=== PATIENT | male | born 1960 | race Caucasian/White ===

== ENCOUNTER 2019-10-17 09:46 | Emergency (ER) | payer OTHER ==
[2019-10-17 10:06] VITALS: BP 172/93; PULSE 91
--- NOTE | 2019-10-17 10:22 | EDM.PDOC ---
<Victor Manuel Dowell - Last Filed: 10/17/19 10:17> ED HPI GENERAL MEDICAL PROBLEM - General Chief Complaint: Skin Complaint Stated Complaint: FACIAL SWELLING Time Seen by Provider: 10/17/19 09:55 Source of Information: Reports: Patient History Limitations: Reports: No Limitations - History of Present Illness INITIAL COMMENTS - FREE TEXT/NARRATIVE: 59 year old white male presents to the ED with complaints of skin infection to his left cheek. Pt states that he had a sore area to his left cheek that developed four days ago. He states that it felt like a hair on his face was sore. Denies erythema. He attempted to pluck the hair, but did not get anything out. He states that over the course of the last several days, his cheek has gotten more swollen and painful. Last night he tried to treat it with heat packs and used hydrogen peroxide to clean it. He said that he tried to pop it but nothing came out but a little bit of blood. Yesterday at work he developed fever and felt fatigued. Took two advil for the pain this morning which has not seemed to help much. He does report a history of staph infection in the past. Right Cheek Pain Score (Numeric/FACES): 10 - Related Data Allergies Allergy/AdvReac Type Severity Reaction Status Date / Time Penicillins Allergy Rash Verified 10/17/19 10:06 Home Meds: Home Meds Allopurinol [Zyloprim] 100 mg PO DAILY 09/12/14 [History] Colchicine [Colcrys] 0.6 mg PO DAILY 09/12/14 [History] Lisinopril [Zestril] 10 mg PO DAILY 10/22/16 [History] Past Medical History Cardiovascular History: Reports: Hypertension, Other (See Below) Other Cardiovascular History: borderline htn, no treatment Musculoskeletal History: Reports: Gout - Past Surgical History GI Surgical History: Reports: Hernia, Inguinal Social & Family History - Family History Family Medical History: Noncontributory - Tobacco Use Smoking Status *Q: Never Smoker - Caffeine Use Caffeine Use: Reports: Coffee ED ROS GENERAL - Review of Systems Review Of Systems: See Below Constitutional: Reports: Fever, Chills, Fatigue, Diaphoresis. Denies: Weakness HEENT: Reports: No Symptoms Respiratory: Reports: No Symptoms Cardiovascular: Reports: No Symptoms Endocrine: Reports: No Symptoms GI/Abdominal: Reports: No Symptoms : Reports: No Symptoms Musculoskeletal: Reports: No Symptoms Skin: Reports: Erythema (left cheek), Wound (left cheek) Neurological: Reports: No Symptoms Psychiatric: Reports: No Symptoms Hematologic/Lymphatic: Reports: No Symptoms Immunologic: Reports: No Symptoms ED EXAM, SKIN/RASH Exam: See Below Exam Limited By: No Limitations General Appearance: Alert, WD/WN, Mild Distress, Obese Ears: Normal External Exam, Hearing Grossly Normal Nose: Normal Inspection Throat/Mouth: Normal Inspection, Normal Lips, Normal Oropharynx, Normal Voice, No Airway Compromise Head: Atraumatic, Normocephalic Neck: Normal Inspection, Supple, Non-Tender Respiratory/Chest: No Respiratory Distress, Lungs Clear, Normal Breath Sounds, Chest Non-Tender Cardiovascular: Normal Peripheral Pulses, Regular Rate, Rhythm, No Murmur GI/Abdominal: Normal Bowel Sounds, Soft, Non-Tender (Male) Exam: Deferred Rectal (Males) Exam: Deferred Back Exam: Normal Inspection Extremities: Normal Inspection, Normal Range of Motion Neurological: Alert, Oriented, Normal Cognition, No Motor/Sensory Deficits Psychiatric: Normal Affect, Normal Mood Skin: Other (erythema and edema noted to left cheek, 3mm scabbed area noted at the central portion of redness and swelling, pt has redness and swelling extending externally down the left jaw) Location, Skin: Face Characteristics: Erythematous Associated features: Warmth, Tenderness, Swelling, Inflammation Lymphatic: Other (left tonsillar lymphadenopathy) Course - Vital Signs Last Recorded V/S: Last Vital Signs Temp 98.2 F 10/17/19 10:03 Pulse 91 10/17/19 10:03 Resp 16 10/17/19 10:03 BP 172/93 H 10/17/19 10:03 Pulse Ox 97 10/17/19 10:03 - Orders/Labs/Meds Meds: Medications Discontinued Medications Generic Name Dose Route Start Last Admin Trade Name Freq PRN Reason Stop Dose Admin Doxycycline Hyclate 200 mg 10/17/19 10:36 10/17/19 11:21 Vibramycin PO 10/17/19 10:37 200 mg ONETIME ONE Administration Lidocaine HCl 10 ml 10/17/19 11:50 10/17/19 12:08 Xylocaine 1% INJECT 10/17/19 11:51 10 ml ONETIME ONE Administration Trimethoprim/Sulfamethoxazole 1 tab 10/17/19 12:08 10/17/19 12:28 Septra Ds PO 10/17/19 12:09 1 tab ONETIME ONE Administration Departure - Departure Disposition: Home, Self-Care 01 Clinical Impression: Abscess Cellulitis Qualifiers: Site of cellulitis: unspecified site Qualified Code(s): L03.90 - Cellulitis, unspecified - Discharge Information Instructions: Cellulitis, Adult, [id number] Referrals: Chasidy Dawson MD [Primary Care Provider] - Forms: ED Department Discharge Additional Instructions: Doxycycline 200 mg twice daily for 10 days, Bactrim twice daily for 1 week or until gone, warm compresses as discussed every 2-3 hours while awake for the next several days or until infection resolving, follow-up clinic if not much better by Wednesday, return to ED as needed if symptoms worsening in any way. <Wan Solorzano - Last Filed: 10/17/19 15:03> Course - Re-Assessments/Exams Free Text/Narrative Re-Assessment/Exam: 10/17/19 15:00 Initial hx and exam was done by Victor Manuel Contreras, [employer]. I agree with her hx and exam as documented. I have also interviewed and examined patient. I did attempt I and D of probable early abcess L face. This was anesthetized with 1 % lidocaine after cleansing with chlorhexadene. Incised with #11 blade. Very small amount of bloody drainage only. Started on doxycycline 200 bid for 10 days and Bactrim DS bid for 7 days. Discharge instr. as documented. Departure - Departure Time of Disposition: 12:10 Condition: Fair
[2019-10-17] MEDS ORDERED: Doxycycline 100 MG Cap PO ONE (10:36)
[2019-10-17] MEDS ORDERED: Lidocaine 1% 10 ML MDV INJECT ONE (11:50)
[2019-10-17] MEDS ORDERED: Sulfamethoxazole/Trimethoprim 800-160 MG Tab PO ONE (12:08)
== END 2019-10-17 12:29 | disposition home or self-care (01) ==
LOC: JD.ED 09:46
DX: L02.01 Cutaneous abscess of face (principal); L03.211 Cellulitis of face; I10 Essential (primary) hypertension; Z88.0 Allergy status to penicillin; Z79.899 Other long term (current) drug therapy
CPT/HCPCS: 10060; 99283; A9270; J2001

== ENCOUNTER 2020-10-16 13:50 | Inpatient (IN) | payer OTHER ==
[2020-10-16] MEDS ORDERED: Metoclopramide 10 MG/2 ML SDV IVPUSH ONE (13:58)
[2020-10-16] MEDS ORDERED: HYDROmorphone 1 MG/ML Syringe IVPUSH ONE ×2 (13:58→18:47)
[2020-10-16] MEDS ORDERED: Sodium Chloride 0.9% 1,000 ML IV SCH (14:00)
--- NOTE | 2020-10-16 14:17 | EDM.PDOC ---
ED HPI GENERAL MEDICAL PROBLEM - General Chief Complaint: Trauma Stated Complaint: [facility] Time Seen by Provider: 10/16/20 13:57 Source of Information: Reports: Patient History Limitations: Reports: No Limitations - History of Present Illness INITIAL COMMENTS - FREE TEXT/NARRATIVE: 60-year-old male reports he was tearing down a paint mcdonald and was proximately 12 feet off the ground when he fell off the roof landing hard on both of his feet. Patient appreciated pain in both calcanei and upon trying to stand up after the fall he had a syncopal event where he passed out and struck his forehead on a concrete wall. He possibly lost consciousness for a short period of time. Coworkers found him and called the paramedics. Paramedics identified alert oriented the patient refused a c-collar. He denies any cervical neck pain or head pain. Denies any back pain either. Pain is in both feet particular the calcanei and in the left knee in the distribution of the proximal tibia. He denies any rib pain or trouble breathing. No abdominal pain no pelvic pain Onset: Today, Sudden Onset Date: 10/16/20 Onset Time: 13:20 Duration: Minutes: Location: Reports: Lower Extremity, Left (Knee and foot particular calcaneus), Lower Extremity, Right (Foot) Quality: Reports: Ache, Throbbing Severity: Moderate Improves with: Reports: None (10) Worsens with: Reports: Movement Context: Reports: Trauma (All approximately 12 feet from a building landing feet first). Denies: Activity, Exercise, Lifting, Sick Contact Associated Symptoms: Reports: Nausea/Vomiting (Nausea without vomiting) Treatments DISTRIBUTION ASSOCIATE: Reports: Other (see below) (None.) Generalized Pain Score (Numeric/FACES): 5 - Related Data Allergies Allergy/AdvReac Type Severity Reaction Status Date / Time Penicillins Allergy Rash Verified 10/16/20 14:04 Home Meds: Home Meds allopurinoL [Zyloprim] 100 mg PO DAILY 09/12/14 [History] lisinopriL [Zestril] 10 mg PO DAILY 10/22/16 [History] Omeprazole 20 mg PO DAILY 10/16/20 [History] Past Medical History Cardiovascular History: Reports: Hypertension, Other (See Below) Other Cardiovascular History: borderline htn, no treatment Musculoskeletal History: Reports: Gout Endocrine/Metabolic History: Reports: Obesity/BMI 30+ - Past Surgical History GI Surgical History: Reports: Hernia, Inguinal Social & Family History - Family History Family Medical History: No Pertinent Family History - Caffeine Use Caffeine Use: Reports: Coffee - Living Situation & Occupation Living situation: Reports: Single Occupation: Employed Review of Systems - Review of Systems Review Of Systems: See Below Constitutional: Denies: Chills, Diaphoresis, Fever, Weakness Eyes: Reports: No Symptoms Ears: Reports: No Symptoms Nose: Reports: No Symptoms Mouth/Throat: Reports: No Symptoms Respiratory: Reports: Shortness of Breath. Denies: Wheezing, Pleuritic Chest Pain, Cough, Sputum, Hemoptysis, Other Cardiovascular: Reports: Other (history of hypertension.) GI/Abdominal: Reports: No Symptoms Genitourinary: Reports: Other ( nocturia x2 ) Musculoskeletal: Reports: Neck Pain, Back Pain (Occasional neck pain occasional low back pain) Skin: Reports: No Symptoms Neurological: Reports: No Symptoms Psychiatric: Reports: No Symptoms ED EXAM, GENERAL - Physical Exam Exam: See Below Exam Limited By: Uncooperative General Appearance: Alert, WD/WN, Mild Distress, Other (She has multiple abrasions and superficial lacerations across his forehead and right temporal scalp. Apparently this is where he stood up after hitting the ground and had a syncopal event striking a concrete wall with his forehead. He reports his tetanus toxoid is up-to-date) Eye Exam: Bilateral Eye: Normal Inspection, PERRL Ears: Normal TMs Nose: Normal Inspection Throat/Mouth: Normal Inspection, Normal Lips, Normal Teeth, Normal Oropharynx, Other Head: Facial Swelling (Multiple superficial lacerations and abrasions to the right temporal scalp right forehead and left forehead above his left eye. None of these wounds will require surgical repair), Facial Tenderness. No: Sinus Tenderness Neck: Normal Inspection, Supple, Non-Tender, Full Range of Motion, Other (I had with no c-collar on as he refused placement. He has full unlimited movement of his cervical spine.). No: Lymphadenopathy (L), Lymphadenopathy (R) Respiratory/Chest: Lungs Clear, Normal Breath Sounds, No Accessory Muscle Use, Respiratory Distress (Mild tachypnea at rest with sats of 98%) Cardiovascular: Normal Peripheral Pulses, Regular Rate, Rhythm, No Edema, No Gallop, No Murmur, No Rub Peripheral Pulses: 2+: Posterior Tibial (L), Posterior Tibial (R), Dorsalis Pedis (L), Dorsalis Pedis (R), 3+: Carotid (L), Carotid (R) GI/Abdominal: Normal Bowel Sounds, Soft, Non-Tender, No Organomegaly, No Mass, Other ED TRAUMA PROCEDURES - Splinting Left Lower Extremity Splint Site: Posterior slab splint below knee left side Pre-Procedure NV Status: Normal Post-Procedure NV Status: Normal Splint Material: Fiberglass Splint Design: Posterior Applied & Form Fitted By: Provider Provider Post-Splint Application NV Check: NV Status Normal Complications: No Right Lower Extremity Pre-Procedure NV Status: Normal (Below-knee Ortho-Glass posterior slab splint due to fractured calcaneus with bulky dressings) Post-Procedure NV Status: Normal Splint Material: Fiberglass Splint Design: Posterior Applied & Form Fitted By: Provider Provider Post-Splint Application NV Check: NV Status Normal (Steer slab) Complications: No #1 Interpretation EKG Date: 10/16/20 Time: 14:15 Rhythm: NSR Rate (Beats/Min): 90 [place]: Normal P-Wave: Enlarged (Consider left atrial hypertrophy) QRS: Other (Initial poor R wave progression) ST-T: Other (T wave inversion aVL nonspecific finding diffuse early repolarization pattern in precordial leads) QT: Normal EKG Interpretation Comments: Borderline ECG Course - Vital Signs Last Recorded V/S: Last Vital Signs Temp 36.7 C 10/16/20 17:53 Pulse 100 10/16/20 17:53 Resp 16 10/16/20 14:01 BP 136/74 10/16/20 17:53 Pulse Ox 100 10/16/20 17:53 - Orders/Labs/Meds Orders: Active Orders 24 hr Category Date Time Status Admission Status [Patient Status] [ADT] Routine ADT 10/16/20 19:27 Ordered EKG Documentation Completion [RC] STAT Care 10/16/20 14:02 Active Sodium Chloride 0.9% [Normal Saline] 1,000 ml Med 10/16/20 14:00 Active IV ASDIRECTED Durable Medical Equipment for Discharge [DME for Oth 10/16/20 18:47 Ordered Discharge] [COMM] Stat Medication Orders Sodium Chloride (Normal Saline) 1,000 mls @ 250 mls/hr IV ASDIRECTED EDUARDO Last Admin: 10/16/20 14:11 Dose: 250 mls/hr Documented by: ANJANA Labs: Laboratory Tests 10/16/20 10/16/20 10/16/20 Range/Units 14:00 14:00 14:00 WBC 10.75 H (4.23-9.07) K/mm3 RBC 4.91 (4.63-6.08) M/mm3 Hgb 15.3 (13.7-17.5) gm/dl Hct 44.5 (40.1-51.0) % MCV 90.6 (79.0-92.2) fl MCH 31.2 (25.7-32.2) pg MCHC 34.4 (32.2-35.5) g/dl RDW Std Deviation 48.3 H (35.1-43.9) fL Plt Count 150 L (163-337) K/mm3 MPV 12.6 H (9.4-12.3) fl Neut % (Auto) 55.2 (34.0-67.9) % Lymph % (Auto) 31.1 (21.8-53.1) % [place] % (Auto) 12.3 H (5.3-12.2) % Eos % (Auto) 1.1 (0.8-7.0) Baso % (Auto) 0.3 (0.1-1.2) % Neut # (Auto) 5.94 H (1.78-5.38) K/mm3 Lymph # (Auto) 3.34 (1.32-3.57) K/mm3 [place] # (Auto) 1.32 H (0.30-0.82) K/mm3 Eos # (Auto) 0.12 (0.04-0.54) K/mm3 Baso # (Auto) 0.03 (0.01-0.08) K/mm3 PT 10.6 (9.7-12.0) SECONDS INR 0.99 APTT 21.7 (21.7-31.4) SECONDS Sodium 139 (136-145) mEq/L Potassium 4.5 (3.5-5.1) mEq/L Chloride 104 (98-107) mEq/L Carbon Dioxide 24 (21-32) mEq/L Anion Gap 15.5 H (5-15) BUN 17 (7-18) mg/dL Creatinine 1.6 H (0.7-1.3) mg/dL Est Cr Clr Drug Dosing 45.90 mL/min Estimated GFR (MDRD) 44 (>60) mL/min BUN/Creatinine Ratio 10.6 L (14-18) Glucose 144 H (74-106) mg/dL Calcium 9.8 (8.5-10.1) mg/dL Magnesium 2.0 (1.8-2.4) mg/dl Total Bilirubin 0.5 (0.2-1.0) mg/dL AST 67 H (15-37) U/L ALT 115 H (16-63) U/L Alkaline Phosphatase 89 (46-116) U/L Creatine Kinase 208 (39-308) U/L C-Reactive Protein 1.1 H* (<1.0) mg/dL NT-Pro-B Natriuret Pep (0-125) pg/mL Total Protein 7.2 (6.4-8.2) g/dl Albumin 3.8 (3.4-5.0) g/dl Globulin 3.4 gm/dL Albumin/Globulin Ratio 1.1 (1-2) Urine Color (Yellow) Urine Appearance (Clear) Urine pH (5.0-8.0) Ur Specific Mcintosh (1.005-1.030) Urine Protein (Negative) Urine Glucose (UA) (Negative) Urine Ketones (Negative) Urine Occult Blood (Negative) Urine Nitrite (Negative) Urine Bilirubin (Negative) Urine Urobilinogen (0.2-1.0) Ur Leukocyte Esterase (Negative) Urine RBC (0-5) /hpf Urine WBC (0-5) /hpf Ur Squamous Epith Cells (0-5) /hpf Urine Bacteria (FEW) /hpf Urine Mucus (FEW) /hpf Ethyl Alcohol 0.00 (0.00) gm% SARS-CoV-2 RNA ([place]) (NEGATIVE) 10/16/20 10/16/20 10/16/20 Range/Units 14:00 15:56 16:55 WBC (4.23-9.07) K/mm3 RBC (4.63-6.08) M/mm3 Hgb (13.7-17.5) gm/dl Hct (40.1-51.0) % MCV (79.0-92.2) fl MCH (25.7-32.2) pg MCHC (32.2-35.5) g/dl RDW Std Deviation (35.1-43.9) fL Plt Count (163-337) K/mm3 MPV (9.4-12.3) fl Neut % (Auto) (34.0-67.9) % Lymph % (Auto) (21.8-53.1) % [place] % (Auto) (5.3-12.2) % Eos % (Auto) (0.8-7.0) Baso % (Auto) (0.1-1.2) % Neut # (Auto) (1.78-5.38) K/mm3 Lymph # (Auto) (1.32-3.57) K/mm3 [place] # (Auto) (0.30-0.82) K/mm3 Eos # (Auto) (0.04-0.54) K/mm3 Baso # (Auto) (0.01-0.08) K/mm3 PT (9.7-12.0) SECONDS INR APTT (21.7-31.4) SECONDS Sodium (136-145) mEq/L Potassium (3.5-5.1) mEq/L Chloride (98-107) mEq/L Carbon Dioxide (21-32) mEq/L Anion Gap (5-15) BUN (7-18) mg/dL Creatinine (0.7-1.3) mg/dL Est Cr Clr Drug Dosing mL/min Estimated GFR (MDRD) (>60) mL/min BUN/Creatinine Ratio (14-18) Glucose (74-106) mg/dL Calcium (8.5-10.1) mg/dL Magnesium (1.8-2.4) mg/dl Total Bilirubin (0.2-1.0) mg/dL AST (15-37) U/L ALT (16-63) U/L Alkaline Phosphatase (46-116) U/L Creatine Kinase (39-308) U/L C-Reactive Protein (<1.0) mg/dL NT-Pro-B Natriuret Pep 15 (0-125) pg/mL Total Protein (6.4-8.2) g/dl Albumin (3.4-5.0) g/dl Globulin gm/dL Albumin/Globulin Ratio (1-2) Urine Color Yellow (Yellow) Urine Appearance Clear (Clear) Urine pH 6.0 (5.0-8.0) Ur Specific Mcintosh > or = 1.030 (1.005-1.030) Urine Protein Negative (Negative) Urine Glucose (UA) Negative (Negative) Urine Ketones Negative (Negative) Urine Occult Blood Negative (Negative) Urine Nitrite Negative (Negative) Urine Bilirubin Negative (Negative) Urine Urobilinogen 0.2 (0.2-1.0) Ur Leukocyte Esterase Negative (Negative) Urine RBC 0-5 (0-5) /hpf Urine WBC 0-5 (0-5) /hpf Ur Squamous Epith Cells 5-10 H (0-5) /hpf Urine Bacteria Few (FEW) /hpf Urine Mucus Few (FEW) /hpf Ethyl Alcohol (0.00) gm% SARS-CoV-2 RNA ([place]) Negative (NEGATIVE) Meds: Medications Generic Name Dose Route Start Last Admin Trade Name Freq PRN Reason Stop Dose Admin Sodium Chloride 1,000 mls @ 250 mls/hr 10/16/20 14:00 10/16/20 14:11 Normal Saline IV 250 mls/hr ASDIRECTED EDUARDO Administration Discontinued Medications Generic Name Dose Route Start Last Admin Trade Name Freq PRN Reason Stop Dose Admin Hydromorphone HCl 1 mg 10/16/20 13:58 10/16/20 14:12 Dilaudid IVPUSH 10/16/20 13:59 1 mg ONETIME ONE Administration Hydromorphone HCl 1 mg 10/16/20 18:47 10/16/20 18:52 Dilaudid IVPUSH 10/16/20 18:48 1 mg ONETIME ONE Administration Metoclopramide HCl 10 mg 10/16/20 13:58 10/16/20 14:05 Reglan IVPUSH 10/16/20 13:59 10 mg ONETIME ONE Administration - Radiology Interpretation Free Text/Narrative:: 60-year-old male presents to the ED for evaluation of injury sustained from a fall. He was tearing down a paint mcdonald and was approximately 12 feet off of the ground when he slipped and landed hard on the concrete surface on both of his feet. He had immediate and severe pain particularly in his right calcaneus or heel area when he attempted to stand up he experienced a syncopal event and fell backwards striking his forehead on a concrete wall. It is suspected that he may have lost consciousness for 20 seconds or so. However he was alert and oriented once he came to. Paramedics were called and they attended him on scene and brought him to the hospital. Patient reports that [facility]. He denies headache. He has abrasions contusions to his right temporal and right forehead as well as a superficial laceration above his left eyebrow from hitting the concrete wall. Other injuries appear to be to the mid left upper arm in the biceps distribution appears to have strained this area the biceps tendon appears to be intact but tender particularly at its insertion on the ulna. There is pain with pronation supination of the left elbow. Lower extremities show obvious deformity and severe pain in his left knee with a traumatic effusion developing. He has swelling lateral aspect of the right ankle and foot and pain on squeeze test of the left calcaneus and foot as well. Plan. Patient will require CT head . His neck is cleared clinically as he has full range of motion and no pain. He will have CTs of his thoracic and lumbar spine due to the nature of his injury. There is no evidence of any chest wall or abdominal injuries. He will have plain films done of his left tib-fib left foot right foot as he has suspect bilateral calcaneal fractures and likely a tibial plateau fracture of his left knee. - Re-Assessments/Exams Free Text/Narrative Re-Assessment/Exam: 10/16/20 16:25 CT scan of the left knee reveals a lateral wedge fracture of the lateral tibial plateau with depression of the weightbearing portion approximately 3 mm. Associated split fractures are present. Findings are consistent with a Schatzker 2 fracture. Large associated joint effusion. Small fracture of the proximal fibula is also present. There is a fracture of the anterior tibial spine. Cruciate ligaments are not well seen on this exam. Follow-up MRI would be of benefit as clinically warranted. CT of the left foot reveals an avulsion type fracture along the medial aspect of the calcaneus. Degenerative changes of the foot in the midfoot appreciated. There is no evidence of joint malalignment or dislocation associated overlying soft tissue swelling is present. CT of the right foot reveals an intra-articular comminuted fracture of the calcaneus. Calcaneal spurs are present there is no evidence of joint malalignment or dislocation fracture line extends to the subtalar joint. Moderate associated overlying soft tissue swelling. 10/16/20 17:19 Urinalysis shows 5-10 squamous epithelial cells but no red blood cells to suggest potential kidney injury. Blood alcohol was 0.00. COVID-19 screen is negative. I have spoken with Dr. Palencia trauma surgeon and he will admit the patient to the hospital for pain management until suitable placement can be arranged. I had [facility] with [facility] [place] and he felt at this time that the calcaneal fractures would be a good week or more before they required surgery as they swell so much. He also indicated that the left tibial plateau fracture could be fixed sometime in the next [address] Ibanez manager of internal did speak with Dr. Salomon who did phone me here in the ED and indicated he would see the patient when he returns either Wednesday or Wednesday this weekend. Otherwise the patient will be seen in the clinic although would be easier to be seen in the hospital as he cannot be weightbearing for about 8 weeks on either extremity until they are satisfactorily healed. 10/16/20 18:43 and had posterior Ortho-Glass-- 5 inch splints placed on both lower extremities to protect the calcanei from further injury. Large bulky dressings applied to both feet. We did not have an appropriate knee splint that could be dialed or locked. [employer] indicated that due to his insurance through the [place] [facility] he would have to pay $700 upfront for the splint. We therefore utilize what we had in the closet which is a very poor knee splint placed with a Velcro. Patient is to be nonweightbearing anyway. Will be admitted to the hospital per trauma surgeon as he is unable to weight-bear on either lower extremity and is going to need help with all activities of daily living. It is estimated that he will not be able to weight-bear in either extremity for 8 weeks. He will require a PT and Occupational Therapy consultation and social work to get involved as he may not be able to return to his home to receive the care he needs. Departure - Departure Time of Disposition: 19:23 Disposition: Admitted As Inpatient 66 Condition: Fair Clinical Impression: Injury resulting from fall from height Tibial plateau fracture, left Qualifiers: Encounter type: initial encounter Fracture type: closed Qualified Code(s): S82.142A - Displaced bicondylar fracture of left tibia, initial encounter for closed fracture Left calcaneal fracture Qualifiers: Encounter type: initial encounter Calcaneus location: body Fracture type: closed Fracture alignment: nondisplaced Qualified Code(s): S92.015A - Nondisplaced fracture of body of left calcaneus, initial encounter for closed fracture Fracture of right calcaneus Qualifiers: Encounter type: initial encounter Calcaneus location: body Fracture type: closed Abrasion of forehead Qualifiers: Encounter type: initial encounter Qualified Code(s): S00.81XA - Abrasion of other part of head, initial encounter - Discharge Information *PRESCRIPTION DRUG MONITORING PROGRAM REVIEWED*: Not Applicable *COPY OF PRESCRIPTION DRUG MONITORING REPORT IN PATIENT MIKHAIL: Not Applicable Referrals: PCP,None [Ordering Only Provider] - Forms: ED Department Discharge Sepsis Event Note (ED) - Evaluation Sepsis Screening Result: No Definite Risk - Focused Exam Vital Signs: Vital Signs Temp Pulse Resp BP BP Pulse Ox 10/16/20 17:53 36.7 C 100 136/74 100 10/16/20 14:01 36.1 C 89 16 139/61 100 10/16/20 13:57 36.1 C 92 21 H 141/97 H 98 - My Orders Last 24 Hours: My Active Orders 10/16/20 14:00 Sodium Chloride 0.9% [Normal Saline] 1,000 ml IV ASDIRECTED 10/16/20 14:02 EKG Documentation Completion [RC] STAT 10/16/20 18:47 Durable Medical Equipment for Discharge [DME for Discharge] [COMM] Stat 10/16/20 19:27 Admission Status [Patient Status] [ADT] Routine - Assessment/Plan Last 24 Hours: My Active Orders 10/16/20 14:00 Sodium Chloride 0.9% [Normal Saline] 1,000 ml IV ASDIRECTED 10/16/20 14:02 EKG Documentation Completion [RC] STAT 10/16/20 18:47 Durable Medical Equipment for Discharge [DME for Discharge] [COMM] Stat 10/16/20 19:27 Admission Status [Patient Status] [ADT] Routine
--- NOTE | 2020-10-16 14:52 | CT ---
PROCEDURE INFORMATION: Exam: CT Lumbar Spine Without Contrast Exam date and time: 10/16/2020 2:21 PM Age: 60 years old Clinical indication: Injury or trauma; Patient HX: Fall 12 ft off of roof back pain; Additional info: Previous report in images sent today TECHNIQUE: Imaging protocol: Computed tomography images of the lumbar spine without contrast. Radiation optimization: All CT scans at this facility use at least one of these dose optimization techniques: automated exposure control; mA and/or kV adjustment per patient size (includes targeted exams where dose is matched to clinical indication); or iterative reconstruction. COMPARISON: No relevant prior studies available. FINDINGS: Vertebrae: The facet joints demonstrate mild degenerative hypertrophy and sclerosis. There is no evidence of acute fracture. Discs/Spinal canal/Neural foramina: The lumbar spine demonstrates mild degenerative changes at multiple levels. Kidneys and ureters: Nonobstructing renal calcifications present bilaterally. Vasculature: The vasculature demonstrates diffuse mild atherosclerotic calcification. Soft tissues: Unremarkable. IMPRESSION: 1. The lumbar spine demonstrates mild degenerative changes at multiple levels. 2. No evidence of acute fracture. Thank you for allowing us to participate in the care of your patient. Dictated and Authenticated by: Joe Sena DO 10/16/2020 3:50 PM Central Time ([place] & [place]) [facility]
--- NOTE | 2020-10-16 14:57 | CT ---
PROCEDURE INFORMATION: Exam: CT Head Without Contrast Exam date and time: 10/16/2020 2:21 PM Age: 60 years old Clinical indication: Injury or trauma; Patient HX: Fall from 12 foot roof abrasions to forehead fainted TECHNIQUE: Imaging protocol: Computed tomography of the head without contrast. Radiation optimization: All CT scans at this facility use at least one of these dose optimization techniques: automated exposure control; mA and/or kV adjustment per patient size (includes targeted exams where dose is matched to clinical indication); or iterative reconstruction. COMPARISON: No relevant prior studies available. FINDINGS: Brain: No intra-axial or extra-axial mass hemorrhage. No midline shift. Normal CSF spaces in graywhite differentiation. Cerebral ventricles: No ventriculomegaly. Bones/joints: No fracture identified. Paranasal sinuses: Paranasal sinuses appear normal. Mastoid air cells: Visualized mastoid air cells are well aerated. Soft tissues: Mild soft tissue swelling and linear hyperdensities in the subcutaneous tissues of right supraorbital region likely focal skin lacerations IMPRESSION: 1. Probable focal right forehead it in skin lacerations. CT of the head is otherwise normal. Thank you for allowing us to participate in the care of your patient. Dictated and Authenticated by: Amanda Monique MD 10/16/2020 3:48 PM Central Time ([place] & [place]) [facility]
--- NOTE | 2020-10-16 14:58 | CT ---
PROCEDURE INFORMATION: Exam: CT Thoracic Spine Without Contrast Exam date and time: 10/16/2020 2:21 PM Age: 60 years old Clinical indication: Injury or trauma; Patient HX: Fall 12 ft off of roof back pain; Additional info: Previous report in images sent today TECHNIQUE: Imaging protocol: Computed tomography images of the thoracic spine without contrast. Radiation optimization: All CT scans at this facility use at least one of these dose optimization techniques: automated exposure control; mA and/or kV adjustment per patient size (includes targeted exams where dose is matched to clinical indication); or iterative reconstruction. COMPARISON: CT Thoracic Spine wo Cont 10/22/2016 6:43 PM FINDINGS: Vertebrae: The facet joints demonstrate mild degenerative hypertrophy and sclerosis. There is no evidence of acute fracture. Discs/Spinal canal/Neural foramina: The thoracic spine demonstrates mild degenerative changes at multiple levels. Soft tissues: Unremarkable. IMPRESSION: 1. The thoracic spine demonstrates mild degenerative changes at multiple levels. 2. No evidence of acute fracture. Thank you for allowing us to participate in the care of your patient. Dictated and Authenticated by: Joe Sena DO 10/16/2020 3:49 PM Central Time ([place] & [place]) [facility]
--- NOTE | 2020-10-16 15:33 | CR ---
PROCEDURE INFORMATION: Exam: XR Pelvis Exam date and time: 10/16/2020 2:33 PM Age: 60 years old Clinical indication: Injury or trauma; Fall; Crushing; Bilateral; Pelvic region; Other: Lower extremities; Injury details: Fell from height of 12 feet onto feet TECHNIQUE: Imaging protocol: XR pelvis. Views: 1 or 2 view. COMPARISON: No relevant prior studies available. FINDINGS: Bones/joints: There is no evidence of acute fracture. There is no evidence of joint malalignment or dislocation. Soft tissues: There are no soft tissue masses or fluid collections. IMPRESSION: 1. No evidence of acute fracture. 2. No evidence of acute dislocation. Thank you for allowing us to participate in the care of your patient. Dictated and Authenticated by: Joe Sena DO 10/16/2020 4:13 PM Central Time ([place] & [place]) [facility]
--- NOTE | 2020-10-16 15:34 | CR ---
PROCEDURE INFORMATION: Exam: XR Left Tibia and Fibula Exam date and time: 10/16/2020 2:35 PM Age: 60 years old Clinical indication: Pain; Knee; Left; Additional info: Fell from 12 feet onto both feet; Concern for tibial plateau fracture TECHNIQUE: Imaging protocol: XR Left tibia and fibula. Views: 2 views. COMPARISON: MR Knee wo Cont Lt 12/31/2014 1:58 PM FINDINGS: Bones/joints: Slightly depressed fracture of the lateral tibial plateau extending inferiorly. Joint effusion is noted. There is no evidence of joint malalignment or dislocation. Soft tissues: Soft tissue swelling is present. IMPRESSION: 1. Slightly depressed fracture of the lateral tibial plateau extending inferiorly. 2. Soft tissue swelling is present. 3. Joint effusion is noted. 4. No evidence of acute dislocation. Thank you for allowing us to participate in the care of your patient. Dictated and Authenticated by: Joe Sena DO 10/16/2020 4:24 PM Central Time ([place] & [place]) BRET
--- NOTE | 2020-10-16 15:35 | CR ---
PROCEDURE INFORMATION: Exam: XR Chest, 1 View Exam date and time: 10/16/2020 2:38 PM Age: 60 years old Clinical indication: Injury or trauma; Fall; Blunt trauma (contusions or hematomas); Additional info: Fell from 12 feet onto both feet TECHNIQUE: Imaging protocol: XR of the chest Views: 1 view. COMPARISON: CT Chest w Cont 10/22/2016 6:43 PM FINDINGS: Lungs: Unremarkable. No consolidation. Pleural space: Unremarkable. No pleural effusion. No pneumothorax. Heart/Mediastinum: Unremarkable. No cardiomegaly. Bones/joints: Unremarkable. IMPRESSION: No acute findings. Thank you for allowing us to participate in the care of your patient. Dictated and Authenticated by: Joe Sena DO 10/16/2020 4:20 PM Central Time ([place]) BRET
--- NOTE | 2020-10-16 15:36 | CR ---
PROCEDURE INFORMATION: Exam: XR Right Foot Complete Exam date and time: 10/16/2020 2:38 PM Age: 60 years old Clinical indication: Injury or trauma; Fall; Fracture, traumatic; Closed fracture; Calcaneus; Right; Injury details: Fell from height of 12 feet onto feet TECHNIQUE: Imaging protocol: XR Right foot. Views: 3 or more views. COMPARISON: No relevant prior studies available. FINDINGS: Bones/joints: Comminuted fracture of the calcaneus is present. Calcaneal spurs are present. Degenerative changes of the foot. Soft tissues: Soft tissue swelling is present. IMPRESSION: 1. Comminuted fracture of the calcaneus is present. 2. Soft tissue swelling is present. 3. Calcaneal spurs are present. Thank you for allowing us to participate in the care of your patient. Dictated and Authenticated by: Joe Sena DO 10/16/2020 4:22 PM Central Time ([place]) BRET
--- NOTE | 2020-10-16 15:37 | CR ---
PROCEDURE INFORMATION: Exam: XR Left Foot Complete Exam date and time: 10/16/2020 2:38 PM Age: 60 years old Clinical indication: Injury or trauma; Fall; Fracture, traumatic; Closed fracture; Foot; Left; Additional info: Fell from 12 feet onto both feet TECHNIQUE: Imaging protocol: XR Left foot. Views: 3 or more views. COMPARISON: No relevant prior studies available. FINDINGS: Bones/joints: Calcaneal spurs are present. Degenerative changes of the foot. There is no evidence of acute fracture. There is no evidence of joint malalignment or dislocation. Soft tissues: Normal. IMPRESSION: 1. Calcaneal spurs are present. 2. Degenerative changes of the foot. 3. No evidence of acute fracture. 4. No evidence of acute dislocation. Thank you for allowing us to participate in the care of your patient. Dictated and Authenticated by: Joe Sena DO 10/16/2020 4:22 PM Central Time ([place]) MTDRoe
--- NOTE | 2020-10-16 16:10 | CT ---
PROCEDURE INFORMATION: Exam: CT Right Lower Extremity Without Contrast, Foot Exam date and time: 10/16/2020 3:25 PM Age: 60 years old Clinical indication: Injury or trauma; Fall; Blunt trauma; Heel; Bilateral; Additional info: Fell from 12 feet onto both feet; Concern for tibial plateau fracture TECHNIQUE: Imaging protocol: CT of the Right lower extremity without contrast was performed. Exam focused on the foot. Radiation optimization: All CT scans at this facility use at least one of these dose optimization techniques: automated exposure control; mA and/or kV adjustment per patient size (includes targeted exams where dose is matched to clinical indication); or iterative reconstruction. COMPARISON: CR Foot Comp Min 3V Rt 10/16/2020 2:38 PM FINDINGS: Bones/joints: Intra-articular comminuted fracture of the calcaneus present. Calcaneal spurs are present. There is no evidence of joint malalignment or dislocation. Fracture line extends to the subtalar joint. Soft tissues: Moderate overlying soft tissue swelling. IMPRESSION: 1. Intra-articular comminuted fracture of the calcaneus present. 2. Moderate overlying soft tissue swelling. 3. Calcaneal spurs are present. 4. No evidence of acute dislocation. 5. Fracture line extends to the subtalar joint. Thank you for allowing us to participate in the care of your patient. Dictated and Authenticated by: Joe Sena DO 10/16/2020 5:08 PM Central Time ([place]) BRET
--- NOTE | 2020-10-16 16:22 | CT ---
PROCEDURE INFORMATION: Exam: CT Left Lower Extremity Without Contrast, Knee Exam date and time: 10/16/2020 3:25 PM Age: 60 years old Clinical indication: Injury or trauma; Fall; Crushing; Patella or knee; Left; Additional info: Fell from 12 feet onto both feet; Concern for tibial plateau fracture TECHNIQUE: Imaging protocol: CT of the Left lower extremity without contrast was performed. Exam focused on the knee. COMPARISON: MR Knee wo Cont Lt 12/31/2014 1:58 PM FINDINGS: Bones/joints: There is a lateral wedge fracture of the lateral tibial plateau with depression of the weight-bearing portion approximately 3 mm. Associated split fractures are present. Findings are consistent with a Schatzker II fracture. Large joint effusion. Small fracture of the proximal fibula is present. There is a fracture of the anterior tibial spine. Cruciate ligaments are not well seen on this examination. Follow-up MRI would be of benefit, as clinically warranted. Soft tissues: Soft tissue swelling is present. IMPRESSION: 1. There is a lateral wedge fracture of the lateral tibial plateau with depression of the weight-bearing portion approximately 3 mm. Associated split fractures are present. Findings are consistent with a Schatzker II fracture. 2. Large joint effusion. 3. Soft tissue swelling is present. 4. Small fracture of the proximal fibula is present. 5. Cruciate ligaments are not well seen on this examination. Follow-up MRI would be of benefit, as clinically warranted. Thank you for allowing us to participate in the care of your patient. Dictated and Authenticated by: Joe Sena DO 10/16/2020 5:16 PM Central Time ([place]) BRET
--- NOTE | 2020-10-16 16:23 | CT ---
PROCEDURE INFORMATION: Exam: CT Left Lower Extremity Without Contrast, Foot Exam date and time: 10/16/2020 3:25 PM Age: 60 years old Clinical indication: Injury or trauma; Fall; Blunt trauma; Heel; Bilateral; Additional info: Fell from 12 feet onto both feet; Concern for tibial plateau fracture TECHNIQUE: Imaging protocol: CT of the Left lower extremity without contrast was performed. Exam focused on the foot. COMPARISON: CR Foot Comp Min 3V Lt 10/16/2020 2:38 PM FINDINGS: Bones/joints: Avulsion-type fracture along the medial aspect of the calcaneus present. Degenerative changes of the foot. There is no evidence of joint malalignment or dislocation. Soft tissues: Overlying soft tissue swelling is present. Lateral soft tissue swelling. IMPRESSION: 1. Avulsion-type fracture along the medial aspect of the calcaneus present. 2. Overlying soft tissue swelling is present. 3. Lateral soft tissue swelling. 4. No evidence of acute dislocation. Thank you for allowing us to participate in the care of your patient. Dictated and Authenticated by: Joe Sena DO 10/16/2020 5:18 PM Central Time ([place]) MTDD
--- NOTE | 2020-10-16 19:31 | PCM.HP.2 ---
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 Patient appreciated pain in both calcanei and upon trying to stand up after the fall he had a syncopal event where he passed out and struck his forehead on a concrete wall. He possibly lost consciousness for a short period of time. Coworkers found him and called the paramedics. Paramedics identified alert oriented the patient refused a c-collar. He denies any cervical neck pain or head pain. Denies any back pain either. Pain is in both feet particular the calcanei and in the left knee in the distribution of the proximal tibia. He denies any rib pain or trouble breathing. No abdominal pain no pelvic pain Onset of Symptoms: Reports: Today, Sudden Duration of Symptoms: Reports: Hour(s):, Improving Location: Reports: Lower Extremity, Left, Lower Extremity, Right Quality: Reports: Sharp Severity: Moderate Improves with: Reports: Immobilization Worsens with: Reports: Movement Generalized Pain Score (Numeric/FACES): 5 - Related Data Allergies/Adverse Reactions: Allergies Allergy/AdvReac Type Severity Reaction Status Date / Time Penicillins Allergy Rash Verified 10/16/20 14:04 Home Medications: Home Meds allopurinoL [Zyloprim] 100 mg PO DAILY 09/12/14 [History] lisinopriL [Zestril] 10 mg PO DAILY 10/22/16 [History] Omeprazole 20 mg PO DAILY 10/16/20 [History] Past Medical History Cardiovascular History: Reports: Hypertension Other Cardiovascular History: borderline htn, no treatment Gastrointestinal History: Reports: GERD Musculoskeletal History: Reports: Gout - Past Surgical History GI Surgical History: Reports: Hernia, Inguinal Social & Family History - Family History Family Medical History: No Pertinent Family History - Tobacco Use Tobacco Use Status *Q: Never Tobacco User - Caffeine Use Caffeine Use: Reports: Coffee - Recreational Drug Use Recreational Drug Use: No - Living Situation & Occupation Living situation: Reports: Single Occupation: Employed H&P Review of Systems - Review of Systems: Review Of Systems: See Below General: Reports: No Symptoms HEENT: Reports: No Symptoms Pulmonary: Reports: No Symptoms Cardiovascular: Reports: No Symptoms Gastrointestinal: Reports: No Symptoms Genitourinary: Reports: No Symptoms Musculoskeletal: Reports: Leg Pain, Joint Swelling Skin: Reports: No Symptoms Psychiatric: Reports: No Symptoms Neurological: Reports: No Symptoms Hematologic/Lymphatic: Reports: No Symptoms Exam - Exam Exam: See Below - Vital Signs Vital Signs: Last Vital Signs Temp 98.1 F 10/16/20 17:53 Pulse 100 10/16/20 17:53 Resp 16 10/16/20 14:01 BP 136/74 10/16/20 17:53 Pulse Ox 100 10/16/20 17:53 Weight: 104.326 kg - Exam General: Alert, Oriented, Cooperative Lungs: Clear to Auscultation, Normal Respiratory Effort Cardiovascular: Regular Rate, Regular Rhythm, Normal S1, Normal S2 GI/Abdominal Exam: Soft, Non-Tender, No Organomegaly, No Distention, No Abnormal Bruit Back Exam: Normal Inspection Extremities: Other (splinted and wrapped due to injuries) Skin: Warm, Dry, Intact Neurological: Cranial Nerves Intact Neuro Extensive - Mental Status: Alert, Oriented x3, Normal Mood/Affect, Normal Cognition - Patient Data Lab Results Last 24 hrs: Laboratory Results - last 24 hr 10/16/20 10/16/20 10/16/20 Range/Units 14:00 14:00 14:00 WBC 10.75 H (4.23-9.07) K/mm3 RBC 4.91 (4.63-6.08) M/mm3 Hgb 15.3 (13.7-17.5) gm/dl Hct 44.5 (40.1-51.0) % MCV 90.6 (79.0-92.2) fl MCH 31.2 (25.7-32.2) pg MCHC 34.4 (32.2-35.5) g/dl RDW Std Deviation 48.3 H (35.1-43.9) fL Plt Count 150 L (163-337) K/mm3 MPV 12.6 H (9.4-12.3) fl Neut % (Auto) 55.2 (34.0-67.9) % Lymph % (Auto) 31.1 (21.8-53.1) % [place] % (Auto) 12.3 H (5.3-12.2) % Eos % (Auto) 1.1 (0.8-7.0) Baso % (Auto) 0.3 (0.1-1.2) % Neut # (Auto) 5.94 H (1.78-5.38) K/mm3 Lymph # (Auto) 3.34 (1.32-3.57) K/mm3 [place] # (Auto) 1.32 H (0.30-0.82) K/mm3 Eos # (Auto) 0.12 (0.04-0.54) K/mm3 Baso # (Auto) 0.03 (0.01-0.08) K/mm3 PT 10.6 (9.7-12.0) SECONDS INR 0.99 APTT 21.7 (21.7-31.4) SECONDS Sodium 139 (136-145) mEq/L Potassium 4.5 (3.5-5.1) mEq/L Chloride 104 (98-107) mEq/L Carbon Dioxide 24 (21-32) mEq/L Anion Gap 15.5 H (5-15) BUN 17 (7-18) mg/dL Creatinine 1.6 H (0.7-1.3) mg/dL Est Cr Clr Drug Dosing 45.90 mL/min Estimated GFR (MDRD) 44 (>60) mL/min BUN/Creatinine Ratio 10.6 L (14-18) Glucose 144 H (74-106) mg/dL Calcium 9.8 (8.5-10.1) mg/dL Magnesium 2.0 (1.8-2.4) mg/dl Total Bilirubin 0.5 (0.2-1.0) mg/dL AST 67 H (15-37) U/L ALT 115 H (16-63) U/L Alkaline Phosphatase 89 (46-116) U/L Creatine Kinase 208 (39-308) U/L C-Reactive Protein 1.1 H* (<1.0) mg/dL NT-Pro-B Natriuret Pep (0-125) pg/mL Total Protein 7.2 (6.4-8.2) g/dl Albumin 3.8 (3.4-5.0) g/dl Globulin 3.4 gm/dL Albumin/Globulin Ratio 1.1 (1-2) Urine Color (Yellow) Urine Appearance (Clear) Urine pH (5.0-8.0) Ur Specific [place] (1.005-1.030) Urine Protein (Negative) Urine Glucose (UA) (Negative) Urine Ketones (Negative) Urine Occult Blood (Negative) Urine Nitrite (Negative) Urine Bilirubin (Negative) Urine Urobilinogen (0.2-1.0) Ur Leukocyte Esterase (Negative) Urine RBC (0-5) /hpf Urine WBC (0-5) /hpf Ur Squamous Epith Cells (0-5) /hpf Urine Bacteria (FEW) /hpf Urine Mucus (FEW) /hpf Ethyl Alcohol 0.00 (0.00) gm% SARS-CoV-2 RNA ([place]) (NEGATIVE) 10/16/20 10/16/20 10/16/20 Range/Units 14:00 15:56 16:55 WBC (4.23-9.07) K/mm3 RBC (4.63-6.08) M/mm3 Hgb (13.7-17.5) gm/dl Hct (40.1-51.0) % MCV (79.0-92.2) fl MCH (25.7-32.2) pg MCHC (32.2-35.5) g/dl RDW Std Deviation (35.1-43.9) fL Plt Count (163-337) K/mm3 MPV (9.4-12.3) fl Neut % (Auto) (34.0-67.9) % Lymph % (Auto) (21.8-53.1) % [place] % (Auto) (5.3-12.2) % Eos % (Auto) (0.8-7.0) Baso % (Auto) (0.1-1.2) % Neut # (Auto) (1.78-5.38) K/mm3 Lymph # (Auto) (1.32-3.57) K/mm3 [place] # (Auto) (0.30-0.82) K/mm3 Eos # (Auto) (0.04-0.54) K/mm3 Baso # (Auto) (0.01-0.08) K/mm3 PT (9.7-12.0) SECONDS INR APTT (21.7-31.4) SECONDS Sodium (136-145) mEq/L Potassium (3.5-5.1) mEq/L Chloride (98-107) mEq/L Carbon Dioxide (21-32) mEq/L Anion Gap (5-15) BUN (7-18) mg/dL Creatinine (0.7-1.3) mg/dL Est Cr Clr Drug Dosing mL/min Estimated GFR (MDRD) (>60) mL/min BUN/Creatinine Ratio (14-18) Glucose (74-106) mg/dL Calcium (8.5-10.1) mg/dL Magnesium (1.8-2.4) mg/dl Total Bilirubin (0.2-1.0) mg/dL AST (15-37) U/L ALT (16-63) U/L Alkaline Phosphatase (46-116) U/L Creatine Kinase (39-308) U/L C-Reactive Protein (<1.0) mg/dL NT-Pro-B Natriuret Pep 15 (0-125) pg/mL Total Protein (6.4-8.2) g/dl Albumin (3.4-5.0) g/dl Globulin gm/dL Albumin/Globulin Ratio (1-2) Urine Color Yellow (Yellow) Urine Appearance Clear (Clear) Urine pH 6.0 (5.0-8.0) Ur Specific [place] > or = 1.030 (1.005-1.030) Urine Protein Negative (Negative) Urine Glucose (UA) Negative (Negative) Urine Ketones Negative (Negative) Urine Occult Blood Negative (Negative) Urine Nitrite Negative (Negative) Urine Bilirubin Negative (Negative) Urine Urobilinogen 0.2 (0.2-1.0) Ur Leukocyte Esterase Negative (Negative) Urine RBC 0-5 (0-5) /hpf Urine WBC 0-5 (0-5) /hpf Ur Squamous Epith Cells 5-10 H (0-5) /hpf Urine Bacteria Few (FEW) /hpf Urine Mucus Few (FEW) /hpf Ethyl Alcohol (0.00) gm% SARS-CoV-2 RNA ([place]) Negative (NEGATIVE) Result Diagrams: 10/16/20 14:00 10/16/20 14:00 Sepsis Event Note - Evaluation Sepsis Screening Result: No Definite Risk - Focused Exam Vital Signs: Vital Signs Temp Pulse Resp BP BP Pulse Ox 10/16/20 17:53 98.1 F 100 136/74 100 10/16/20 14:01 97.0 F 89 16 139/61 100 10/16/20 13:57 97.0 F 92 21 H 141/97 H 98 Problem List Initiated/Reviewed/Updated: No Orders Last 24hrs: Active Orders 24 hr Category Date Time Status EKG Documentation Completion [RC] STAT Care 10/16/20 14:02 Active Sodium Chloride 0.9% [Normal Saline] 1,000 ml Med 10/16/20 14:00 Active IV ASDIRECTED Durable Medical Equipment for Discharge [DME for Oth 10/16/20 18:47 Ordered Discharge] [COMM] Stat Medication Orders Sodium Chloride (Normal Saline) 1,000 mls @ 250 mls/hr IV ASDIRECTED EDUADRO Last Admin: 10/16/20 14:11 Dose: 250 mls/hr Documented by: ANJANA Assessment/Plan Comment:: Fall from 12 ft, landed on his feet but then had a secondary fall from standing hitting forehead. +LOC. Has left tibial plateau fx, left prox fib fx, BL calcaneal fxs, right much worse than left. BLE have been splinted. - No weight bearing in BLE. Need to stay in bed. Provide bed ambrosio and urinal for toileting - Place pillow under left knee - Pain control - Ok to have reg diet - Pain control with IV and PO meds - Awaiting Ortho consult with Dr. Chisholm, likely Sunday 10/21 - No chemical or mechanical DVT ppx for now due to bleeding and BLE injuries
[2020-10-16] MEDS ORDERED: HYDROmorphone 0.5 MG/0.5 ML Syringe IVPUSH PRN (19:32)
[2020-10-16] MEDS ORDERED: Ondansetron 4 MG Tab.DIS PO PRN (19:32)
[2020-10-16] MEDS: oxyCODONE 5 MG Tab PO PRN (21:07)
[2020-10-16] MEDS: Lactated Ringers 1,000 ML IV SCH (21:07)
[2020-10-16] MEDS: Acetaminophen 325 MG Tab PO PRN (21:09)
[2020-10-17] MEDS: oxyCODONE 5 MG Tab PO PRN ×6 (00:28→22:56)
[2020-10-17] MEDS: Acetaminophen 325 MG Tab PO PRN ×2 (00:28→06:30)
--- NOTE | 2020-10-17 10:19 | PCM.PN ---
- General Info Date of Service: 10/17/20 Admission Dx/Problem (Free Text): Fall with BLE fractures Subjective Update: In pain this AM. Low appetite. Otherwise doing fine. Functional Status: Reports: Urinating Pain Score: 7 - Review of Systems General: Reports: No Symptoms HEENT: Reports: No Symptoms Pulmonary: Reports: No Symptoms Cardiovascular: Reports: No Symptoms Gastrointestinal: Reports: No Symptoms Genitourinary: Reports: No Symptoms Musculoskeletal: Reports: No Symptoms Skin: Reports: No Symptoms Neurological: Reports: No Symptoms Psychiatric: Reports: No Symptoms - Patient Data Vitals - Most Recent: Last Vital Signs Temp 98.4 F 10/17/20 07:58 Pulse 81 10/17/20 07:58 Resp 20 10/17/20 07:58 BP 149/69 H 10/17/20 07:58 Pulse Ox 96 10/17/20 09:10 Weight - Most Recent: 114.078 kg I&O - Last 24 Hours: Intake & Output 10/16/20 10/17/20 10/17/20 22:59 06:59 14:59 Intake Total 731 Output Total 600 Balance 131 Lab Results Last 24 Hours: Laboratory Results - last 24 hr 10/16/20 10/16/20 10/16/20 Range/Units 14:00 14:00 14:00 WBC 10.75 H (4.23-9.07) K/mm3 RBC 4.91 (4.63-6.08) M/mm3 Hgb 15.3 (13.7-17.5) gm/dl Hct 44.5 (40.1-51.0) % MCV 90.6 (79.0-92.2) fl MCH 31.2 (25.7-32.2) pg MCHC 34.4 (32.2-35.5) g/dl RDW Std Deviation 48.3 H (35.1-43.9) fL Plt Count 150 L (163-337) K/mm3 MPV 12.6 H (9.4-12.3) fl Neut % (Auto) 55.2 (34.0-67.9) % Lymph % (Auto) 31.1 (21.8-53.1) % Pope % (Auto) 12.3 H (5.3-12.2) % Eos % (Auto) 1.1 (0.8-7.0) Baso % (Auto) 0.3 (0.1-1.2) % Neut # (Auto) 5.94 H (1.78-5.38) K/mm3 Lymph # (Auto) 3.34 (1.32-3.57) K/mm3 Pope # (Auto) 1.32 H (0.30-0.82) K/mm3 Eos # (Auto) 0.12 (0.04-0.54) K/mm3 Baso # (Auto) 0.03 (0.01-0.08) K/mm3 Manual Slide Review PT 10.6 (9.7-12.0) SECONDS INR 0.99 APTT 21.7 (21.7-31.4) SECONDS Sodium 139 (136-145) mEq/L Potassium 4.5 (3.5-5.1) mEq/L Chloride 104 (98-107) mEq/L Carbon Dioxide 24 (21-32) mEq/L Anion Gap 15.5 H (5-15) BUN 17 (7-18) mg/dL Creatinine 1.6 H (0.7-1.3) mg/dL Est Cr Clr Drug Dosing 45.90 mL/min Estimated GFR (MDRD) 44 (>60) mL/min BUN/Creatinine Ratio 10.6 L (14-18) Glucose 144 H (74-106) mg/dL Calcium 9.8 (8.5-10.1) mg/dL Phosphorus (2.6-4.7) mg/dL Magnesium 2.0 (1.8-2.4) mg/dl Total Bilirubin 0.5 (0.2-1.0) mg/dL AST 67 H (15-37) U/L ALT 115 H (16-63) U/L Alkaline Phosphatase 89 (46-116) U/L Creatine Kinase 208 (39-308) U/L C-Reactive Protein 1.1 H* (<1.0) mg/dL NT-Pro-B Natriuret Pep (0-125) pg/mL Total Protein 7.2 (6.4-8.2) g/dl Albumin 3.8 (3.4-5.0) g/dl Globulin 3.4 gm/dL Albumin/Globulin Ratio 1.1 (1-2) Urine Color (Yellow) Urine Appearance (Clear) Urine pH (5.0-8.0) Ur Specific [place] (1.005-1.030) Urine Protein (Negative) Urine Glucose (UA) (Negative) Urine Ketones (Negative) Urine Occult Blood (Negative) Urine Nitrite (Negative) Urine Bilirubin (Negative) Urine Urobilinogen (0.2-1.0) Ur Leukocyte Esterase (Negative) Urine RBC (0-5) /hpf Urine WBC (0-5) /hpf Ur Squamous Epith Cells (0-5) /hpf Urine Bacteria (FEW) /hpf Urine Mucus (FEW) /hpf Ethyl Alcohol 0.00 (0.00) gm% SARS-CoV-2 RNA ([place]) (NEGATIVE) 10/16/20 10/16/20 10/16/20 Range/Units 14:00 15:56 16:55 WBC (4.23-9.07) K/mm3 RBC (4.63-6.08) M/mm3 Hgb (13.7-17.5) gm/dl Hct (40.1-51.0) % MCV (79.0-92.2) fl MCH (25.7-32.2) pg MCHC (32.2-35.5) g/dl RDW Std Deviation (35.1-43.9) fL Plt Count (163-337) K/mm3 MPV (9.4-12.3) fl Neut % (Auto) (34.0-67.9) % Lymph % (Auto) (21.8-53.1) % Pope % (Auto) (5.3-12.2) % Eos % (Auto) (0.8-7.0) Baso % (Auto) (0.1-1.2) % Neut # (Auto) (1.78-5.38) K/mm3 Lymph # (Auto) (1.32-3.57) K/mm3 Pope # (Auto) (0.30-0.82) K/mm3 Eos # (Auto) (0.04-0.54) K/mm3 Baso # (Auto) (0.01-0.08) K/mm3 Manual Slide Review PT (9.7-12.0) SECONDS INR APTT (21.7-31.4) SECONDS Sodium (136-145) mEq/L Potassium (3.5-5.1) mEq/L Chloride (98-107) mEq/L Carbon Dioxide (21-32) mEq/L Anion Gap (5-15) BUN (7-18) mg/dL Creatinine (0.7-1.3) mg/dL Est Cr Clr Drug Dosing mL/min Estimated GFR (MDRD) (>60) mL/min BUN/Creatinine Ratio (14-18) Glucose (74-106) mg/dL Calcium (8.5-10.1) mg/dL Phosphorus (2.6-4.7) mg/dL Magnesium (1.8-2.4) mg/dl Total Bilirubin (0.2-1.0) mg/dL AST (15-37) U/L ALT (16-63) U/L Alkaline Phosphatase (46-116) U/L Creatine Kinase (39-308) U/L C-Reactive Protein (<1.0) mg/dL NT-Pro-B Natriuret Pep 15 (0-125) pg/mL Total Protein (6.4-8.2) g/dl Albumin (3.4-5.0) g/dl Globulin gm/dL Albumin/Globulin Ratio (1-2) Urine Color Yellow (Yellow) Urine Appearance Clear (Clear) Urine pH 6.0 (5.0-8.0) Ur Specific [place] > or = 1.030 (1.005-1.030) Urine Protein Negative (Negative) Urine Glucose (UA) Negative (Negative) Urine Ketones Negative (Negative) Urine Occult Blood Negative (Negative) Urine Nitrite Negative (Negative) Urine Bilirubin Negative (Negative) Urine Urobilinogen 0.2 (0.2-1.0) Ur Leukocyte Esterase Negative (Negative) Urine RBC 0-5 (0-5) /hpf Urine WBC 0-5 (0-5) /hpf Ur Squamous Epith Cells 5-10 H (0-5) /hpf Urine Bacteria Few (FEW) /hpf Urine Mucus Few (FEW) /hpf Ethyl Alcohol (0.00) gm% SARS-CoV-2 RNA ([place]) Negative (NEGATIVE) 10/17/20 10/17/20 Range/Units 05:08 05:08 WBC 11.84 H (4.23-9.07) K/mm3 RBC 4.55 L (4.63-6.08) M/mm3 Hgb 14.3 (13.7-17.5) gm/dl Hct 41.8 (40.1-51.0) % MCV 91.9 (79.0-92.2) fl MCH 31.4 (25.7-32.2) pg MCHC 34.2 (32.2-35.5) g/dl RDW Std Deviation 49.3 H (35.1-43.9) fL Plt Count 127 L (163-337) K/mm3 MPV 13.8 H (9.4-12.3) fl Neut % (Auto) 69.1 H (34.0-67.9) % Lymph % (Auto) 14.1 L (21.8-53.1) % Pope % (Auto) 15.8 H (5.3-12.2) % Eos % (Auto) 0.8 (0.8-7.0) Baso % (Auto) 0.2 (0.1-1.2) % Neut # (Auto) 8.19 H (1.78-5.38) K/mm3 Lymph # (Auto) 1.67 (1.32-3.57) K/mm3 Pope # (Auto) 1.87 H (0.30-0.82) K/mm3 Eos # (Auto) 0.09 (0.04-0.54) K/mm3 Baso # (Auto) 0.02 (0.01-0.08) K/mm3 Manual Slide Review Abnormal smear PT (9.7-12.0) SECONDS INR APTT (21.7-31.4) SECONDS Sodium 138 (136-145) mEq/L Potassium 4.1 (3.5-5.1) mEq/L Chloride 104 (98-107) mEq/L Carbon Dioxide 26 (21-32) mEq/L Anion Gap 12.1 (5-15) BUN 15 (7-18) mg/dL Creatinine 1.2 (0.7-1.3) mg/dL Est Cr Clr Drug Dosing 63.33 mL/min Estimated GFR (MDRD) > 60 (>60) mL/min BUN/Creatinine Ratio 12.5 L (14-18) Glucose 104 (74-106) mg/dL Calcium 8.9 (8.5-10.1) mg/dL Phosphorus 3.5 (2.6-4.7) mg/dL Magnesium 2.0 (1.8-2.4) mg/dl Total Bilirubin (0.2-1.0) mg/dL AST (15-37) U/L ALT (16-63) U/L Alkaline Phosphatase (46-116) U/L Creatine Kinase (39-308) U/L C-Reactive Protein (<1.0) mg/dL NT-Pro-B Natriuret Pep (0-125) pg/mL Total Protein (6.4-8.2) g/dl Albumin (3.4-5.0) g/dl Globulin gm/dL Albumin/Globulin Ratio (1-2) Urine Color (Yellow) Urine Appearance (Clear) Urine pH (5.0-8.0) Ur Specific [place] (1.005-1.030) Urine Protein (Negative) Urine Glucose (UA) (Negative) Urine Ketones (Negative) Urine Occult Blood (Negative) Urine Nitrite (Negative) Urine Bilirubin (Negative) Urine Urobilinogen (0.2-1.0) Ur Leukocyte Esterase (Negative) Urine RBC (0-5) /hpf Urine WBC (0-5) /hpf Ur Squamous Epith Cells (0-5) /hpf Urine Bacteria (FEW) /hpf Urine Mucus (FEW) /hpf Ethyl Alcohol (0.00) gm% SARS-CoV-2 RNA ([place]) (NEGATIVE) Med Orders - Current: Current Medications Acetaminophen (Tylenol) 650 mg PO Q4H [facility] Allopurinol (Zyloprim) 300 mg PO DAILY [facility] Docusate Sodium (Colace) 100 mg PO BID PRN PRN Reason: Constipation Hydromorphone HCl (Dilaudid) 1 mg IVPUSH Q3H PRN PRN Reason: Pain Lactated Ringer's (Ringers, Lactated) 1,000 mls @ 50 mls/hr IV ASDIRECTED [facility] Last Admin: 10/16/20 21:07 Dose: 50 mls/hr Documented by: Non-Formulary Medication (Colchicine [Colchicine]) 0.6 mg PO DAILY [facility] Non-Formulary Medication (Losartan) 50 mg PO DAILY [facility] Non-Formulary Medication (Omeprazole) 20 mg PO DAILY [facility] Ondansetron HCl (Zofran Odt) 4 mg PO Q4H PRN PRN Reason: nausea, able to take PO Oxycodone HCl (Oxycodone) 10 mg PO Q4H PRN PRN Reason: Pain Discontinued Medications Acetaminophen (Tylenol) 650 mg PO Q4H PRN PRN Reason: Pain (Mild 1-3)/fever Last Admin: 10/17/20 06:30 Dose: 650 mg Documented by: Hydromorphone HCl (Dilaudid) 1 mg IVPUSH ONETIME ONE Stop: 10/16/20 13:59 Last Admin: 10/16/20 14:12 Dose: 1 mg Documented by: Hydromorphone HCl (Dilaudid) 1 mg IVPUSH ONETIME ONE Stop: 10/16/20 18:48 Last Admin: 10/16/20 18:52 Dose: 1 mg Documented by: Hydromorphone HCl (Dilaudid) 0.5 mg IVPUSH Q2H PRN PRN Reason: Pain (severe 7-10) Last Admin: 10/17/20 03:51 Dose: 0.5 mg Documented by: Sodium Chloride (Normal Saline) 1,000 mls @ 250 mls/hr IV ASDIRECTED [facility] Last Admin: 10/16/20 14:11 Dose: 250 mls/hr Documented by: Metoclopramide HCl (Reglan) 10 mg IVPUSH ONETIME ONE Stop: 10/16/20 13:59 Last Admin: 10/16/20 14:05 Dose: 10 mg Documented by: Oxycodone HCl (Oxycodone) 5 mg PO Q4H PRN PRN Reason: Pain (moderate 4-6) Last Admin: 10/17/20 06:29 Dose: 5 mg Documented by: - Exam General: Alert, Oriented, Cooperative Lungs: Clear to Auscultation, Normal Respiratory Effort Cardiovascular: Regular Rate, Regular Rhythm, No Murmurs GI/Abdominal Exam: Soft, Non-Tender, No Organomegaly, No Distention Extremities: Other (pain in BLE due to known fractures) Sepsis Event Note - Evaluation Sepsis Screening Result: No Definite Risk - Focused Exam Vital Signs: Vital Signs Temp Pulse Resp BP Pulse Ox Pulse Ox 10/17/20 09:10 96 10/17/20 07:58 98.4 F 81 20 149/69 H 93 L 10/17/20 03:52 98.2 F 94 18 151/90 H 94 L 10/17/20 00:26 98.1 F 105 H 20 157/78 H 96 - Problem List Review Problem List Initiated/Reviewed/Updated: No - My Orders Last 24 Hours: My Active Orders 10/16/20 Dinner Regular Diet [DIET] 10/16/20 19:32 Bedrest Bedside Commode [RC] BID Oxygen Therapy [RC] PRN VTE/DVT Education [RC] DAILY Vital Signs [RC] Q4HR Docusate Sodium [Colace] 100 mg PO BID PRN Ondansetron [Zofran ODT] 4 mg PO Q4H PRN VTE Mechanical Contraindications [AST] Per Unit Routine VTE Pharmacological Contraindications [AST] Per Unit Routine Resuscitation Status Routine 10/16/20 19:33 Intake and Output [RC] 04,16 10/16/20 19:45 Lactated Ringers [Ringers, Lactated] 1,000 ml IV ASDIRECTED 10/17/20 08:35 RT Incentive Spirometry [RC] Q1HR 10/17/20 10:11 HYDROmorphone [Dilaudid] 1 mg IVPUSH Q3H PRN oxyCODONE 10 mg PO Q4H PRN 10/17/20 10:15 Acetaminophen [TylenoL] 650 mg PO Q4H Colchicine [Colchicine] 0.6 mg PO DAILY Losartan 50 mg PO DAILY Omeprazole 20 mg PO DAILY allopurinoL [Zyloprim] 300 mg PO DAILY 10/17/20 12:00 HEMOGLOBIN/HEMATOCRIT,HH [HEME] Routine - Assessment Assessment:: Patient is s/p fall with left knee fx and bilateral calcaneus fractures. Stable. - Plan Plan:: Fall from 12 ft, landed on his feet but then had a secondary fall from standing hitting forehead. +LOC. Has left tibial plateau fx, left prox fib fx, BL calcaneal fxs, right much worse than left. BLE have been splinted. - No weight bearing in BLE. Need to stay in bed. Provide bed ambrosio and urinal for toileting - Place pillow under left knee - Pain control - Ok to have reg diet - Pain control with IV and PO meds - Awaiting Ortho consult with Dr. Chisholm, likely Sunday 10/21 - No chemical or mechanical DVT ppx for now due to bleeding and BLE injuries
[2020-10-17] MEDS: Pantoprazole 40 MG Tab.CR PO SCH (10:37)
[2020-10-17] MEDS: Colchicine 0.6 MG Tab PO SCH (10:37)
[2020-10-17] MEDS: Acetaminophen 325 MG Tab PO SCH ×4 (10:37→22:55)
[2020-10-17] MEDS: Allopurinol 300 MG Tab PO SCH (10:38)
[2020-10-17] MEDS: Losartan 25 MG Tab PO SCH (10:38)
[2020-10-17] MEDS: Lactated Ringers 1,000 ML IV SCH (16:20)
[2020-10-17] MEDS: HYDROmorphone 1 MG/ML Syringe IVPUSH PRN ×2 (16:24→20:26)
[2020-10-18] MEDS: Acetaminophen 325 MG Tab PO SCH ×6 (03:38→22:23)
[2020-10-18] MEDS: oxyCODONE 5 MG Tab PO PRN ×4 (03:39→21:22)
[2020-10-18] MEDS: Pantoprazole 40 MG Tab.CR PO SCH (06:47)
[2020-10-18] MEDS: Colchicine 0.6 MG Tab PO SCH (08:54)
[2020-10-18] MEDS: Allopurinol 300 MG Tab PO SCH (08:54)
[2020-10-18] MEDS: Losartan 25 MG Tab PO SCH (08:55)
[2020-10-18] MEDS: Docusate Sodium 100 MG Cap PO PRN ×2 (10:26→22:23)
[2020-10-18] MEDS: Lactated Ringers 1,000 ML IV SCH (12:31)
--- NOTE | 2020-10-18 14:28 | PCM.PN ---
- General Info Date of Service: 10/18/20 Admission Dx/Problem (Free Text): Fall with BLE fractures Subjective Update: Patient is doing well. No issues. Pain is better controlled. Functional Status: Reports: Pain Controlled, Tolerating Diet, Urinating - Review of Systems General: Reports: No Symptoms HEENT: Reports: No Symptoms Pulmonary: Reports: No Symptoms Cardiovascular: Reports: No Symptoms Gastrointestinal: Reports: No Symptoms Genitourinary: Reports: No Symptoms Musculoskeletal: Reports: No Symptoms Skin: Reports: No Symptoms Neurological: Reports: No Symptoms Psychiatric: Reports: No Symptoms - Patient Data Vitals - Most Recent: Last Vital Signs Temp 98.2 F 10/18/20 12:34 Pulse 66 10/18/20 12:34 Resp 14 10/18/20 12:34 BP 114/65 10/18/20 12:34 Pulse Ox 95 10/18/20 12:34 Weight - Most Recent: 114.623 kg I&O - Last 24 Hours: Intake & Output 10/17/20 10/18/20 10/18/20 22:59 06:59 14:59 Intake Total 1200 1111 120 Output Total 1450 450 Balance -250 661 120 Med Orders - Current: Current Medications Acetaminophen (Tylenol) 650 mg PO Q4H [facility] Last Admin: 10/18/20 10:25 Dose: 650 mg Documented by: Allopurinol (Zyloprim) 300 mg PO DAILY [facility] Last Admin: 10/18/20 08:54 Dose: 300 mg Documented by: Colchicine (Colcrys) 0.6 mg PO DAILY [facility] Last Admin: 10/18/20 08:54 Dose: 0.6 mg Documented by: Docusate Sodium (Colace) 100 mg PO BID PRN PRN Reason: Constipation Last Admin: 10/18/20 10:26 Dose: 100 mg Documented by: Hydromorphone HCl (Dilaudid) 1 mg IVPUSH Q3H PRN PRN Reason: Pain Last Admin: 10/17/20 20:26 Dose: 1 mg Documented by: Lactated Ringer's (Ringers, Lactated) 1,000 mls @ 50 mls/hr IV ASDIRECTED [facility] Last Admin: 10/18/20 12:31 Dose: 50 mls/hr Documented by: Losartan Potassium (Cozaar) 50 mg PO DAILY [facility] Last Admin: 10/18/20 08:55 Dose: 50 mg Documented by: Ondansetron HCl (Zofran Odt) 4 mg PO Q4H PRN PRN Reason: nausea, able to take PO Oxycodone HCl (Oxycodone) 10 mg PO Q4H PRN PRN Reason: Pain Last Admin: 10/18/20 10:26 Dose: 10 mg Documented by: Pantoprazole Sodium (Protonix) 40 mg PO ACBRK [facility] Last Admin: 10/18/20 06:47 Dose: 40 mg Documented by: Discontinued Medications Acetaminophen (Tylenol) 650 mg PO Q4H PRN PRN Reason: Pain (Mild 1-3)/fever Last Admin: 10/17/20 06:30 Dose: 650 mg Documented by: Hydromorphone HCl (Dilaudid) 1 mg IVPUSH ONETIME ONE Stop: 10/16/20 13:59 Last Admin: 10/16/20 14:12 Dose: 1 mg Documented by: Hydromorphone HCl (Dilaudid) 1 mg IVPUSH ONETIME ONE Stop: 10/16/20 18:48 Last Admin: 10/16/20 18:52 Dose: 1 mg Documented by: Hydromorphone HCl (Dilaudid) 0.5 mg IVPUSH Q2H PRN PRN Reason: Pain (severe 7-10) Last Admin: 10/17/20 03:51 Dose: 0.5 mg Documented by: Sodium Chloride (Normal Saline) 1,000 mls @ 250 mls[facility] Last Admin: 10/16/20 14:11 Dose: 250 mls/hr Documented by: Metoclopramide HCl (Reglan) 10 mg IVPUSH ONETIME ONE Stop: 10/16/20 13:59 Last Admin: 10/16/20 14:05 Dose: 10 mg Documented by: Oxycodone HCl (Oxycodone) 5 mg PO Q4H PRN PRN Reason: Pain (moderate 4-6) Last Admin: 10/17/20 06:29 Dose: 5 mg Documented by: - Exam General: Alert, Oriented, Cooperative Cardiovascular: Regular Rate, Regular Rhythm, No Murmurs GI/Abdominal Exam: Soft, Non-Tender, No Organomegaly, No Distention Extremities: Normal Capillary Refill, Other (able to move toes bilaterally, no new pain) Sepsis Event Note - Evaluation Sepsis Screening Result: No Definite Risk - Focused Exam Vital Signs: Vital Signs Temp Pulse Resp BP Pulse Ox 10/18/20 12:34 98.2 F 66 14 114/65 95 10/18/20 08:55 131/66 10/18/20 07:47 97.3 F 70 16 131/66 92 L 10/18/20 03:43 97.3 F 76 20 122/97 H 92 L - Problem List Review Problem List Initiated/Reviewed/Updated: No - My Orders Last 24 Hours: My Active Orders 10/18/20 11:55 Bedrest [RC] ASDIRECTED - Assessment Assessment:: Patient is s/p fall with left knee fx and bilateral calcaneus fractures. Stable. - Plan Plan:: Fall from 12 ft, landed on his feet but then had a secondary fall from standing hitting forehead. +LOC. CT head is normal. Has left tibial plateau fx, left prox fib fx, BL calcaneal fxs, right much worse than left. BLE have been splinted. - No weight bearing in BLE. Need to stay in bed. Provide bed ambrosio and urinal for toileting - Place pillow under left knee - Ok to have reg diet - Pain control with IV and PO meds as we are doing now - Awaiting Ortho consult with Dr. Salomon, likely Sunday 10/21 - No mechanical DVT ppx. But we will start chemical DVT ppx now that he is 48 hrs post injury and monitor Hgb.
[2020-10-18] MEDS: Heparin Sodium 5,000 Units/ML Vial SUBCUT SCH ×2 (14:52→22:25)
[2020-10-18] MEDS: HYDROmorphone 1 MG/ML Syringe IVPUSH PRN (23:34)
[2020-10-19] MEDS: oxyCODONE 5 MG Tab PO PRN ×5 (01:30→22:12)
[2020-10-19] MEDS: Acetaminophen 325 MG Tab PO SCH ×6 (02:34→22:07)
[2020-10-19] MEDS: Pantoprazole 40 MG Tab.CR PO SCH (05:36)
[2020-10-19] MEDS: Heparin Sodium 5,000 Units/ML Vial SUBCUT SCH ×3 (06:32→22:07)
[2020-10-19] MEDS: Losartan 25 MG Tab PO SCH (08:31)
[2020-10-19] MEDS: Allopurinol 300 MG Tab PO SCH (08:32)
[2020-10-19] MEDS: Colchicine 0.6 MG Tab PO SCH (08:32)
[2020-10-19] MEDS: HYDROmorphone 1 MG/ML Syringe IVPUSH PRN ×3 (08:34→20:59)
[2020-10-19] MEDS: Lactated Ringers 1,000 ML IV SCH (09:13)
[2020-10-19] MEDS ORDERED: Sennosides 8.6 MG Tab PO PRN (09:16)
[2020-10-19] MEDS ORDERED: Bisacodyl 5 MG Tab PO PRN (10:57)
--- NOTE | 2020-10-19 11:02 | PCM.PN ---
- General Info Date of Service: 10/19/20 Admission Dx/Problem (Free Text): Fall with BLE fractures Subjective Update: had some pain overnight but this is under control now. He is doing well otherwise Functional Status: Reports: Pain Controlled, Tolerating Diet, Urinating - Review of Systems General: Reports: No Symptoms HEENT: Reports: No Symptoms Pulmonary: Reports: No Symptoms Cardiovascular: Reports: No Symptoms Gastrointestinal: Reports: No Symptoms Genitourinary: Reports: No Symptoms Musculoskeletal: Reports: Leg Pain (due to fractures) Skin: Reports: No Symptoms Neurological: Reports: No Symptoms - Patient Data Vitals - Most Recent: Last Vital Signs Temp 98.2 F 10/19/20 07:59 Pulse 76 10/19/20 07:59 Resp 16 10/19/20 07:59 BP 132/85 10/19/20 08:31 Pulse Ox 94 L 10/19/20 07:59 Weight - Most Recent: 114.305 kg I&O - Last 24 Hours: Intake & Output 10/18/20 10/19/20 10/19/20 22:59 06:59 14:59 Intake Total 1404 1392 Output Total 300 300 Balance 1104 1092 Lab Results Last 24 Hours: Laboratory Results - last 24 hr 10/19/20 Range/Units 05:15 WBC 7.93 (4.23-9.07) K/mm3 RBC 4.59 L (4.63-6.08) M/mm3 Hgb 14.1 (13.7-17.5) gm/dl Hct 42.5 (40.1-51.0) % MCV 92.6 H (79.0-92.2) fl MCH 30.7 (25.7-32.2) pg MCHC 33.2 (32.2-35.5) g/dl RDW Std Deviation 48.7 H (35.1-43.9) fL Plt Count 118 L (163-337) K/mm3 MPV 12.5 H (9.4-12.3) fl Med Orders - Current: Current Medications Acetaminophen (Tylenol) 650 mg PO Q4H [facility] Last Admin: 10/19/20 06:32 Dose: 650 mg Documented by: Allopurinol (Zyloprim) 300 mg PO DAILY [facility] Last Admin: 10/19/20 08:32 Dose: 300 mg Documented by: Colchicine (Colcrys) 0.6 mg PO DAILY [facility] Last Admin: 10/19/20 08:32 Dose: 0.6 mg Documented by: Docusate Sodium (Colace) 100 mg PO BID PRN PRN Reason: Constipation Last Admin: 10/18/20 22:23 Dose: 100 mg Documented by: Heparin Sodium (Porcine) (Heparin Sodium) 5,000 units SUBCUT Q8H [facility] Last Admin: 10/19/20 06:32 Dose: 5,000 units Documented by: Hydromorphone HCl (Dilaudid) 1 mg IVPUSH Q3H PRN PRN Reason: Pain Last Admin: 10/19/20 08:34 Dose: 1 mg Documented by: Lactated Ringer's (Ringers, Lactated) 1,000 mls @ 50 mls/hr IV ASDIRECTED [facility] Last Admin: 10/19/20 09:13 Dose: 50 mls/hr Documented by: Losartan Potassium (Cozaar) 50 mg PO DAILY [facility] Last Admin: 10/19/20 08:31 Dose: 50 mg Documented by: Ondansetron HCl (Zofran Odt) 4 mg PO Q4H PRN PRN Reason: nausea, able to take PO Oxycodone HCl (Oxycodone) 10 mg PO Q4H PRN PRN Reason: Pain Last Admin: 10/19/20 05:36 Dose: 10 mg Documented by: Pantoprazole Sodium (Protonix) 40 mg PO ACBRK [facility] Last Admin: 10/19/20 05:36 Dose: 40 mg Documented by: Senna (Senna) 8.6 - 17.2 mg PO BID PRN PRN Reason: Constipation Discontinued Medications Acetaminophen (Tylenol) 650 mg PO Q4H PRN PRN Reason: Pain (Mild 1-3)/fever Last Admin: 10/17/20 06:30 Dose: 650 mg Documented by: Hydromorphone HCl (Dilaudid) 1 mg IVPUSH ONETIME ONE Stop: 10/16/20 13:59 Last Admin: 10/16/20 14:12 Dose: 1 mg Documented by: Hydromorphone HCl (Dilaudid) 1 mg IVPUSH ONETIME ONE Stop: 10/16/20 18:48 Last Admin: 10/16/20 18:52 Dose: 1 mg Documented by: Hydromorphone HCl (Dilaudid) 0.5 mg IVPUSH Q2H PRN PRN Reason: Pain (severe 7-10) Last Admin: 10/17/20 03:51 Dose: 0.5 mg Documented by: Sodium Chloride (Normal Saline) 1,000 mls @ 250 mls/hr IV ASDIRECTED [facility] Last Admin: 10/16/20 14:11 Dose: 250 mls/hr Documented by: Metoclopramide HCl (Reglan) 10 mg IVPUSH ONETIME ONE Stop: 10/16/20 13:59 Last Admin: 10/16/20 14:05 Dose: 10 mg Documented by: Oxycodone HCl (Oxycodone) 5 mg PO Q4H PRN PRN Reason: Pain (moderate 4-6) Last Admin: 10/17/20 06:29 Dose: 5 mg Documented by: - Exam General: Alert, Oriented, Cooperative Lungs: Clear to Auscultation, Normal Respiratory Effort Cardiovascular: Regular Rate, Regular Rhythm, No Murmurs GI/Abdominal Exam: Soft, Non-Tender, No Organomegaly Extremities: Normal Capillary Refill Sepsis Event Note - Evaluation Sepsis Screening Result: No Definite Risk - Focused Exam Vital Signs: Vital Signs Temp Pulse Resp BP Pulse Ox 10/19/20 08:31 132/85 10/19/20 07:59 98.2 F 76 16 132/85 94 L 10/19/20 04:37 97.9 F 77 18 112/65 94 L 10/18/20 23:37 98.6 F 78 18 128/74 94 L - Problem List Review Problem List Initiated/Reviewed/Updated: No - My Orders Last 24 Hours: My Active Orders 10/18/20 11:55 Bedrest [RC] ASDIRECTED 10/18/20 14:30 Heparin Sodium 5,000 units SUBCUT Q8H 10/19/20 11:00 polyethylene glycoL 3350 [MiraLAX] 17 gm PO DAILY 10/20/20 05:11 CBC W/O DIFF,HEMOGRAM [HEME] AM 10/21/20 05:11 CBC W/O DIFF,HEMOGRAM [HEME] AM - Assessment Assessment:: Patient is s/p fall with left knee fx and bilateral calcaneus fractures. Stable. - Plan Plan:: Fall from 12 ft, landed on his feet but then had a secondary fall from standing hitting forehead. +LOC. CT head is normal. Has left tibial plateau fx, left prox fib fx, BL calcaneal fxs, right much worse than left. BLE have been splinted. Fractures - No weight bearing in BLE. Need to stay in bed. Provide bed ambrosio and urinal for toileting - Place pillow under left knee - Restarted home medications - Ok to have reg diet - Pain control with IV and PO meds as we are doing now - Awaiting Ortho consult with Dr. Salomon, likely Sunday 10/21 - No mechanical DVT ppx. But we will start chemical DVT ppx now that he is 48 hrs post injury and monitor Hgb. Gout - restarted home meds - Allopurinol and Colchicine HTN - restarted Losartan GERD - restarted Omeprazole
[2020-10-19] MEDS: Polyethylene Glycol 3350 Powder 17 GM Packet PO SCH (11:45)
[2020-10-20] MEDS: Acetaminophen 325 MG Tab PO SCH ×6 (02:45→21:55)
[2020-10-20] MEDS: oxyCODONE 5 MG Tab PO PRN ×5 (02:46→21:54)
[2020-10-20] MEDS: Pantoprazole 40 MG Tab.CR PO SCH (05:51)
[2020-10-20] MEDS: Heparin Sodium 5,000 Units/ML Vial SUBCUT SCH ×3 (05:52→21:54)
[2020-10-20] MEDS ORDERED: Magnesium Hydroxide 400 MG/5 ML Susp 30 ML Cup PO ONE (06:00)
[2020-10-20] MEDS: Colchicine 0.6 MG Tab PO SCH (08:00)
[2020-10-20] MEDS: Allopurinol 300 MG Tab PO SCH (08:00)
[2020-10-20] MEDS: Losartan 25 MG Tab PO SCH (08:00)
[2020-10-20] MEDS: Polyethylene Glycol 3350 Powder 17 GM Packet PO SCH (08:18)
--- NOTE | 2020-10-20 09:53 | PCM.PN ---
- General Info Date of Service: 10/20/20 Admission Dx/Problem (Free Text): Fall with BLE fractures Subjective Update: Pain is controlled. No other issues overnight. Pt is trying to turn himself in bed to avoid decubitus ulcers. Functional Status: Reports: Pain Controlled, Tolerating Diet, Urinating - Review of Systems General: Reports: No Symptoms HEENT: Reports: No Symptoms Pulmonary: Reports: No Symptoms Cardiovascular: Reports: No Symptoms Gastrointestinal: Reports: No Symptoms Genitourinary: Reports: No Symptoms Musculoskeletal: Reports: No Symptoms Skin: Reports: No Symptoms Neurological: Reports: No Symptoms Psychiatric: Reports: No Symptoms - Patient Data Vitals - Most Recent: Last Vital Signs Temp 98.1 F 10/20/20 07:53 Pulse 71 10/20/20 07:53 Resp 16 10/20/20 07:53 BP 118/76 10/20/20 08:00 Pulse Ox 93 L 10/20/20 07:53 Weight - Most Recent: 114.804 kg I&O - Last 24 Hours: Intake & Output 10/19/20 10/20/20 10/20/20 22:59 06:59 14:59 Intake Total 1180 1529 Output Total 600 950 Balance 580 579 Lab Results Last 24 Hours: Laboratory Results - last 24 hr 10/20/20 Range/Units 04:45 WBC 7.73 (4.23-9.07) K/mm3 RBC 4.71 (4.63-6.08) M/mm3 Hgb 14.7 (13.7-17.5) gm/dl Hct 43.4 (40.1-51.0) % MCV 92.1 (79.0-92.2) fl MCH 31.2 (25.7-32.2) pg MCHC 33.9 (32.2-35.5) g/dl RDW Std Deviation 48.4 H (35.1-43.9) fL Plt Count 137 L (163-337) K/mm3 MPV 13.6 H (9.4-12.3) fl Med Orders - Current: Current Medications Acetaminophen (Tylenol) 650 mg PO Q4H [facility] Last Admin: 10/20/20 05:52 Dose: 650 mg Documented by: Allopurinol (Zyloprim) 300 mg PO DAILY [facility] Last Admin: 10/20/20 08:00 Dose: 300 mg Documented by: Bisacodyl (Dulcolax) 5 mg PO DAILY PRN PRN Reason: Constipation Last Admin: 10/19/20 11:45 Dose: 5 mg Documented by: Colchicine (Colcrys) 0.6 mg PO DAILY [facility] Last Admin: 10/20/20 08:00 Dose: 0.6 mg Documented by: Docusate Sodium (Colace) 100 mg PO BID PRN PRN Reason: Constipation Last Admin: 10/18/20 22:23 Dose: 100 mg Documented by: Heparin Sodium (Porcine) (Heparin Sodium) 5,000 units SUBCUT Q8H [facility] Last Admin: 10/20/20 05:52 Dose: 5,000 units Documented by: Hydromorphone HCl (Dilaudid) 1 mg IVPUSH Q3H PRN PRN Reason: Pain Last Admin: 10/19/20 20:59 Dose: 1 mg Documented by: Lactated Ringer's (Ringers, Lactated) 1,000 mls @ 50 mls/hr IV ASDIRECTED [facility] Last Admin: 10/19/20 09:13 Dose: 50 mls/hr Documented by: Losartan Potassium (Cozaar) 50 mg PO DAILY [facility] Last Admin: 10/20/20 08:00 Dose: 50 mg Documented by: Ondansetron HCl (Zofran Odt) 4 mg PO Q4H PRN PRN Reason: nausea, able to take PO Oxycodone HCl (Oxycodone) 10 mg PO Q4H PRN PRN Reason: Pain Last Admin: 10/20/20 07:40 Dose: 10 mg Documented by: Pantoprazole Sodium (Protonix) 40 mg PO ACBRK [facility] Last Admin: 10/20/20 05:51 Dose: 40 mg Documented by: Polyethylene Glycol (Miralax) 17 gm PO DAILY [facility] Last Admin: 10/20/20 08:18 Dose: 17 gm Documented by: Senna (Senna) 8.6 - 17.2 mg PO BID PRN PRN Reason: Constipation Last Admin: 10/19/20 11:44 Dose: 17.2 mg Documented by: Discontinued Medications Acetaminophen (Tylenol) 650 mg PO Q4H PRN PRN Reason: Pain (Mild 1-3)/fever Last Admin: 10/17/20 06:30 Dose: 650 mg Documented by: Hydromorphone HCl (Dilaudid) 1 mg IVPUSH ONETIME ONE Stop: 10/16/20 13:59 Last Admin: 10/16/20 14:12 Dose: 1 mg Documented by: Hydromorphone HCl (Dilaudid) 1 mg IVPUSH ONETIME ONE Stop: 10/16/20 18:48 Last Admin: 10/16/20 18:52 Dose: 1 mg Documented by: Hydromorphone HCl (Dilaudid) 0.5 mg IVPUSH Q2H PRN PRN Reason: Pain (severe 7-10) Last Admin: 10/17/20 03:51 Dose: 0.5 mg Documented by: Sodium Chloride (Normal Saline) 1,000 mls @ 250 mls/hr IV [facility] Last Admin: 10/16/20 14:11 Dose: 250 mls/hr Documented by: Magnesium Hydroxide (Milk Of Magnesia) 30 ml PO ONETIME ONE Stop: 10/20/20 06:01 Last Admin: 10/20/20 08:17 Dose: 30 ml Documented by: Metoclopramide HCl (Reglan) 10 mg IVPUSH ONETIME ONE Stop: 10/16/20 13:59 Last Admin: 10/16/20 14:05 Dose: 10 mg Documented by: Oxycodone HCl (Oxycodone) 5 mg PO Q4H PRN PRN Reason: Pain (moderate 4-6) Last Admin: 10/17/20 06:29 Dose: 5 mg Documented by: - Exam General: Alert, Oriented, Cooperative Cardiovascular: Regular Rate, Regular Rhythm, No Murmurs GI/Abdominal Exam: Soft, Non-Tender, No Organomegaly, No Distention, Tender (slight tenderness to palpation in the RLQ and LLQ) Sepsis Event Note - Evaluation Sepsis Screening Result: No Definite Risk - Focused Exam Vital Signs: Vital Signs Temp Pulse Resp BP Pulse Ox 10/20/20 08:00 118/76 10/20/20 07:53 98.1 F 71 16 118/76 93 L 10/20/20 03:41 98.1 F 78 20 121/73 94 L 10/20/20 00:42 97.9 F 79 18 128/78 93 L - Problem List Review Problem List Initiated/Reviewed/Updated: No - My Orders Last 24 Hours: My Active Orders 10/19/20 10:57 bisacodyL [Dulcolax] 5 mg PO DAILY PRN 10/19/20 11:00 polyethylene glycoL 3350 [MiraLAX] 17 gm PO DAILY 10/21/20 05:11 CBC W/O DIFF,HEMOGRAM [HEME] AM - Assessment Assessment:: Patient is s/p fall with left knee fx and bilateral calcaneus fractures. Stable. - Plan Plan:: Fall from 12 ft, landed on his feet but then had a secondary fall from standing hitting forehead. +LOC. CT head is normal. Has left tibial plateau fx, left prox fib fx, BL calcaneal fxs, right much worse than left. BLE have been splinted. Fractures - No weight bearing in BLE. Need to stay in bed. Provide bed ambrosio and urinal for toileting - Place pillow under left knee - Restarted home medications - Ok to have reg diet - Pain control with IV and PO meds as we are doing now - Awaiting Ortho consult with Dr. Salomon, likely Sunday 10/21 - No mechanical DVT ppx. But we will start chemical DVT ppx now that he is 48 hrs post injury and monitor Hgb. Gout - restarted home meds - Allopurinol and Colchicine HTN - restarted Losartan GERD - restarted Omeprazole
[2020-10-20] MEDS: Lactated Ringers 1,000 ML IV SCH (11:55)
[2020-10-20] MEDS: HYDROmorphone 1 MG/ML Syringe IVPUSH PRN (18:25)
[2020-10-21] MEDS ORDERED: Lactated Ringers 1,000 ML IV SCH
[2020-10-21] MEDS: HYDROmorphone 1 MG/ML Syringe IVPUSH PRN (00:32)
[2020-10-21] MEDS: Acetaminophen 325 MG Tab PO SCH ×6 (02:12→21:33)
[2020-10-21] MEDS: Pantoprazole 40 MG Tab.CR PO SCH (05:50)
[2020-10-21] MEDS: oxyCODONE 5 MG Tab PO PRN ×2 (08:29→17:00)
[2020-10-21] MEDS: Polyethylene Glycol 3350 Powder 17 GM Packet PO SCH (11:27)
[2020-10-21] MEDS: Colchicine 0.6 MG Tab PO SCH (11:27)
[2020-10-21] MEDS: Allopurinol 300 MG Tab PO SCH (11:28)
[2020-10-21] MEDS: Losartan 25 MG Tab PO SCH (11:36)
[2020-10-21] MEDS ORDERED: Bisacodyl 10 MG Supp RECTAL PRN (12:55)
[2020-10-21] MEDS: Enoxaparin 40 MG/0.4 ML Syringe SUBCUT SCH (13:25)
--- NOTE | 2020-10-21 17:29 | PCM.PN ---
- General Info Date of Service: 10/21/20 Admission Dx/Problem (Free Text): Fall with BLE fractures Subjective Update: Patient has a chance to talk to Dr. Salomon about future plans. He is otherwise stable. No new changes. He is tolerating diet. Functional Status: Reports: Pain Controlled, Tolerating Diet, Urinating - Review of Systems General: Reports: No Symptoms HEENT: Reports: No Symptoms Pulmonary: Reports: No Symptoms Cardiovascular: Reports: No Symptoms Gastrointestinal: Reports: No Symptoms Genitourinary: Reports: No Symptoms Musculoskeletal: Reports: Other (bilateral lower extremity fractures) Skin: Reports: No Symptoms Neurological: Reports: No Symptoms - Patient Data Vitals - Most Recent: Last Vital Signs Temp 98.2 F 10/21/20 12:12 Pulse 76 10/21/20 12:12 Resp 20 10/21/20 12:12 BP 153/84 H 10/21/20 12:12 Pulse Ox 94 L 10/21/20 12:12 Weight - Most Recent: 115.666 kg I&O - Last 24 Hours: Intake & Output 10/21/20 10/21/20 10/21/20 06:59 14:59 22:59 Intake Total 1424 Output Total 1150 Balance 274 Lab Results Last 24 Hours: Laboratory Results - last 24 hr 10/21/20 Range/Units 05:25 WBC 10.08 H (4.23-9.07) K/mm3 RBC 4.75 (4.63-6.08) M/mm3 Hgb 14.7 (13.7-17.5) gm/dl Hct 43.6 (40.1-51.0) % MCV 91.8 (79.0-92.2) fl MCH 30.9 (25.7-32.2) pg MCHC 33.7 (32.2-35.5) g/dl RDW Std Deviation 48.7 H (35.1-43.9) fL Plt Count 175 (163-337) K/mm3 MPV 12.3 (9.4-12.3) fl Med Orders - Current: Current Medications Acetaminophen (Tylenol) 650 mg PO Q4H [facility] Last Admin: 10/21/20 13:35 Dose: 650 mg Documented by: Allopurinol (Zyloprim) 300 mg PO DAILY [facility] Last Admin: 10/21/20 11:28 Dose: 300 mg Documented by: Bisacodyl (Dulcolax) 5 mg PO DAILY PRN PRN Reason: Constipation Last Admin: 10/19/20 11:45 Dose: 5 mg Documented by: Bisacodyl (Dulcolax) 10 mg RECTAL DAILY PRN PRN Reason: Constipation Last Admin: 10/21/20 13:29 Dose: 10 mg Documented by: Colchicine (Colcrys) 0.6 mg PO DAILY [facility] Last Admin: 10/21/20 11:27 Dose: 0.6 mg Documented by: Docusate Sodium (Colace) 100 mg PO BID PRN PRN Reason: Constipation Last Admin: 10/18/20 22:23 Dose: 100 mg Documented by: Enoxaparin Sodium (Lovenox) 40 mg SUBCUT DAILY [facility] Last Admin: 10/21/20 13:25 Dose: 40 mg Documented by: Losartan Potassium (Cozaar) 50 mg PO DAILY [facility] Last Admin: 10/21/20 11:36 Dose: 50 mg Documented by: Ondansetron HCl (Zofran Odt) 4 mg PO Q4H PRN PRN Reason: nausea, able to take PO Oxycodone HCl (Oxycodone) 10 mg PO Q4H PRN PRN Reason: Pain Last Admin: 10/21/20 17:00 Dose: 10 mg Documented by: Pantoprazole Sodium (Protonix) 40 mg PO ACBRK [facility] Last Admin: 10/21/20 05:50 Dose: 40 mg Documented by: Polyethylene Glycol (Miralax) 17 gm PO DAILY [facility] Last Admin: 10/21/20 11:27 Dose: 17 gm Documented by: Senna (Senna) 8.6 - 17.2 mg PO BID PRN PRN Reason: Constipation Last Admin: 10/19/20 11:44 Dose: 17.2 mg Documented by: Discontinued Medications Acetaminophen (Tylenol) 650 mg PO Q4H PRN PRN Reason: Pain (Mild 1-3)/fever Last Admin: 10/17/20 06:30 Dose: 650 mg Documented by: Heparin Sodium (Porcine) (Heparin Sodium) 5,000 units SUBCUT Q8H [facility] Last Admin: 10/20/20 21:54 Dose: 5,000 units Documented by: Hydromorphone HCl (Dilaudid) 1 mg IVPUSH ONETIME ONE Stop: 10/16/20 13:59 Last Admin: 10/16/20 14:12 Dose: 1 mg Documented by: Hydromorphone HCl (Dilaudid) 1 mg IVPUSH ONETIME ONE Stop: 10/16/20 18:48 Last Admin: 10/16/20 18:52 Dose: 1 mg Documented by: Hydromorphone HCl (Dilaudid) 0.5 mg IVPUSH Q2H PRN PRN Reason: Pain (severe 7-10) Last Admin: 10/17/20 03:51 Dose: 0.5 mg Documented by: Hydromorphone HCl (Dilaudid) 1 mg IVPUSH Q3H PRN PRN Reason: Pain Last Admin: 10/21/20 00:32 Dose: 1 mg Documented by: Sodium Chloride (Normal Saline) 1,000 mls @ 250 mls/hr [facility] Last Admin: 10/16/20 14:11 Dose: 250 mls/hr Documented by: Lactated Ringer's (Ringers, Lactated) 1,000 mls @ 50 mls/hr [facility] Last Admin: 10/20/20 11:55 Dose: 50 mls/hr Documented by: Lactated Ringer's (Ringers, Lactated) 1,000 mls @ 100 mls/hr [facility] Last Admin: 10/21/20 02:13 Dose: 100 mls/hr Documented by: Magnesium Hydroxide (Milk Of Magnesia) 30 ml PO ONETIME ONE Stop: 10/20/20 06:01 Last Admin: 10/20/20 08:17 Dose: 30 ml Documented by: Metoclopramide HCl (Reglan) 10 mg IVPUSH ONETIME ONE Stop: 10/16/20 13:59 Last Admin: 10/16/20 14:05 Dose: 10 mg Documented by: Oxycodone HCl (Oxycodone) 5 mg PO Q4H PRN PRN Reason: Pain (moderate 4-6) Last Admin: 10/17/20 06:29 Dose: 5 mg Documented by: - Exam General: Alert, Oriented, Cooperative Extremities: Normal Capillary Refill, Other (pain due to known fractures) Sepsis Event Note - Evaluation Sepsis Screening Result: No Definite Risk - Focused Exam Vital Signs: Vital Signs Temp Pulse Resp BP Pulse Ox 10/21/20 12:12 98.2 F 76 20 153/84 H 94 L 10/21/20 11:36 136/87 10/21/20 08:00 98.2 F 67 20 136/87 93 L - Problem List Review Problem List Initiated/Reviewed/Updated: No - My Orders Last 24 Hours: My Active Orders 10/21/20 06:30 Consult to Physician [CONS] Routine 10/21/20 11:53 PT Evaluation and Treatment [CONS] Routine 10/21/20 12:55 bisacodyL [Dulcolax] 10 mg RECTAL DAILY PRN 10/21/20 13:00 Enoxaparin [Lovenox] 40 mg SUBCUT DAILY - Assessment Assessment:: Patient is s/p fall with left knee fx and bilateral calcaneus fractures. Stable. - Plan Plan:: Fall from 12 ft, landed on his feet but then had a secondary fall from standing hitting forehead. +LOC. CT head is normal. Has left tibial plateau fx, left prox fib fx, BL calcaneal fxs, right much worse than left. BLE have been splinted. Fractures - No weight bearing in BLE. Need to stay in bed. Provide bed ambrosio and urinal for toileting - Place pillow under left knee - Cont home medications - Reg diet - dc IV meds, we will only do PO meds - Talked to Dr. Salomon. Knee will heal conservatively - no surgery. Ankles will be referred to Dr. Ibanez in [place]. Ankles will be repaired after 6-8 weeks. At the mean time the patient should be NWB in BLE. - Chemical DVT PPx with lovenox 40 Qd Gout - restarted home meds - Allopurinol and Colchicine HTN - restarted Losartan GERD - restarted Omeprazole DISPO: recommendation is SNF as the patient is NWB in BLE for 6-8 weeks and lives aloe. However, the patient does not want to go to SNF. He is remodelling his home so that he can return home. We will order supplies to help him stay home as safely as possible. He understands the risks for going home. Can be discharged as soon as supplies and set up is ready.
[2020-10-21] MEDS ORDERED: oxyCODONE 5 MG Tab PO ONE (19:02)
[2020-10-22] MEDS: Acetaminophen 325 MG Tab PO SCH ×6 (01:33→21:40)
[2020-10-22] MEDS: Pantoprazole 40 MG Tab.CR PO SCH (05:32)
[2020-10-22] MEDS ORDERED: Magnesium Hydroxide 400 MG/5 ML Susp 30 ML Cup PO ONE (05:46)
[2020-10-22] MEDS: Enoxaparin 40 MG/0.4 ML Syringe SUBCUT SCH (09:42)
[2020-10-22] MEDS: Colchicine 0.6 MG Tab PO SCH (09:43)
[2020-10-22] MEDS: Allopurinol 300 MG Tab PO SCH (09:43)
[2020-10-22] MEDS: Losartan 25 MG Tab PO SCH (09:43)
[2020-10-22] MEDS: Polyethylene Glycol 3350 Powder 17 GM Packet PO SCH (09:45)
--- NOTE | 2020-10-22 10:53 | PCM.PN ---
- General Info Date of Service: 10/22/20 Admission Dx/Problem (Free Text): Fall with BLE fractures Subjective Update: Patient doing well. No issues. pain is controlled. - Review of Systems General: Reports: No Symptoms HEENT: Reports: No Symptoms Pulmonary: Reports: No Symptoms Cardiovascular: Reports: No Symptoms Gastrointestinal: Reports: No Symptoms Genitourinary: Reports: No Symptoms Musculoskeletal: Reports: Leg Pain (bilateral due to recent injury) Skin: Reports: No Symptoms Neurological: Reports: No Symptoms Psychiatric: Reports: No Symptoms - Patient Data Vitals - Most Recent: Last Vital Signs Temp 97.9 F 10/22/20 08:09 Pulse 82 10/22/20 08:09 Resp 18 10/22/20 08:09 BP 135/87 10/22/20 09:43 Pulse Ox 92 L 10/22/20 08:09 Weight - Most Recent: 111.629 kg I&O - Last 24 Hours: Intake & Output 10/21/20 10/22/20 10/22/20 22:59 06:59 14:59 Intake Total 1200 400 Output Total 925 600 Balance 275 -200 Med Orders - Current: Current Medications Acetaminophen (Tylenol) 650 mg PO Q4H [facility] Last Admin: 10/22/20 09:43 Dose: 650 mg Documented by: Allopurinol (Zyloprim) 300 mg PO DAILY [facility] Last Admin: 10/22/20 09:43 Dose: 300 mg Documented by: Bisacodyl (Dulcolax) 5 mg PO DAILY PRN PRN Reason: Constipation Last Admin: 10/19/20 11:45 Dose: 5 mg Documented by: Bisacodyl (Dulcolax) 10 mg RECTAL DAILY PRN PRN Reason: Constipation Last Admin: 10/21/20 13:29 Dose: 10 mg Documented by: Colchicine (Colcrys) 0.6 mg PO DAILY [facility] Last Admin: 10/22/20 09:43 Dose: 0.6 mg Documented by: Docusate Sodium (Colace) 100 mg PO BID PRN PRN Reason: Constipation Last Admin: 10/18/20 22:23 Dose: 100 mg Documented by: Enoxaparin Sodium (Lovenox) 40 mg SUBCUT DAILY [facility] Last Admin: 10/22/20 09:42 Dose: 40 mg Documented by: Losartan Potassium (Cozaar) 50 mg PO DAILY [facility] Last Admin: 10/22/20 09:43 Dose: 50 mg Documented by: Ondansetron HCl (Zofran Odt) 4 mg PO Q4H PRN PRN Reason: nausea, able to take PO Oxycodone HCl (Oxycodone) 10 mg PO Q4H PRN PRN Reason: Pain Last Admin: 10/21/20 17:00 Dose: 10 mg Documented by: Pantoprazole Sodium (Protonix) 40 mg PO ACBRK [facility] Last Admin: 10/22/20 05:32 Dose: 40 mg Documented by: Polyethylene Glycol (Miralax) 17 gm PO DAILY [facility] Last Admin: 10/22/20 09:45 Dose: Not Given Documented by: Senna (Senna) 8.6 - 17.2 mg PO BID PRN PRN Reason: Constipation Last Admin: 10/19/20 11:44 Dose: 17.2 mg Documented by: Discontinued Medications Acetaminophen (Tylenol) 650 mg PO Q4H PRN PRN Reason: Pain (Mild 1-3)/fever Last Admin: 10/17/20 06:30 Dose: 650 mg Documented by: Heparin Sodium (Porcine) (Heparin Sodium) 5,000 units SUBCUT Q8H [facility] Last Admin: 10/20/20 21:54 Dose: 5,000 units Documented by: Hydromorphone HCl (Dilaudid) 1 mg IVPUSH ONETIME ONE Stop: 10/16/20 13:59 Last Admin: 10/16/20 14:12 Dose: 1 mg Documented by: Hydromorphone HCl (Dilaudid) 1 mg IVPUSH ONETIME ONE Stop: 10/16/20 18:48 Last Admin: 10/16/20 18:52 Dose: 1 mg Documented by: Hydromorphone HCl (Dilaudid) 0.5 mg IVPUSH Q2H PRN PRN Reason: Pain (severe 7-10) Last Admin: 10/17/20 03:51 Dose: 0.5 mg Documented by: Hydromorphone HCl (Dilaudid) 1 mg IVPUSH Q3H PRN PRN Reason: Pain Last Admin: 10/21/20 00:32 Dose: 1 mg Documented by: Sodium Chloride (Normal Saline) 1,000 mls @ 250 mls/hr IV ASDIRECTED [facility] Last Admin: 10/16/20 14:11 Dose: 250 mls/hr Documented by: Lactated Ringer's (Ringers, Lactated) 1,000 mls @ 50 mls/hr IV [facility] Last Admin: 10/20/20 11:55 Dose: 50 mls/hr Documented by: Lactated Ringer's (Ringers, Lactated) 1,000 mls @ 100 mls/hr IV [facility] Last Admin: 10/21/20 02:13 Dose: 100 mls/hr Documented by: Magnesium Hydroxide (Milk Of Magnesia) 30 ml PO ONETIME ONE Stop: 10/20/20 06:01 Last Admin: 10/20/20 08:17 Dose: 30 ml Documented by: Magnesium Hydroxide (Milk Of Magnesia) 30 ml PO ONETIME ONE Stop: 10/22/20 05:47 Last Admin: 10/22/20 06:11 Dose: Not Given Documented by: Metoclopramide HCl (Reglan) 10 mg IVPUSH ONETIME ONE Stop: 10/16/20 13:59 Last Admin: 10/16/20 14:05 Dose: 10 mg Documented by: Oxycodone HCl (Oxycodone) 5 mg PO Q4H PRN PRN Reason: Pain (moderate 4-6) Last Admin: 10/17/20 06:29 Dose: 5 mg Documented by: Oxycodone HCl (Oxycodone) 10 mg PO ONETIME ONE Stop: 10/21/20 19:03 Last Admin: 10/21/20 19:07 Dose: 10 mg Documented by: - Exam General: Alert, Oriented, Cooperative Lungs: Clear to Auscultation, Normal Respiratory Effort Cardiovascular: Regular Rate, Regular Rhythm, No Murmurs GI/Abdominal Exam: Soft, Non-Tender, No Organomegaly Extremities: Normal Capillary Refill Sepsis Event Note - Evaluation Sepsis Screening Result: No Definite Risk - Focused Exam Vital Signs: Vital Signs Temp Pulse Resp BP Pulse Ox 10/22/20 09:43 135/87 10/22/20 08:09 97.9 F 82 18 135/87 92 L 10/22/20 05:32 98.2 F 81 16 156/84 H 98 10/22/20 01:32 98.2 F 79 16 134/90 96 - Problem List Review Problem List Initiated/Reviewed/Updated: No - My Orders Last 24 Hours: My Active Orders 10/21/20 11:53 PT Evaluation and Treatment [CONS] Routine 10/21/20 12:55 bisacodyL [Dulcolax] 10 mg RECTAL DAILY PRN 10/21/20 13:00 Enoxaparin [Lovenox] 40 mg SUBCUT DAILY - Assessment Assessment:: Patient is s/p fall with left knee fx and bilateral calcaneus fractures. Stable. - Plan Plan:: Fall from 12 ft, landed on his feet but then had a secondary fall from standing hitting forehead. +LOC. CT head is normal. Has left tibial plateau fx, left prox fib fx, BL calcaneal fxs, right much worse than left. BLE have been splinted. Fractures - No weight bearing in BLE. Need to stay in bed. Provide bed ambrosio and urinal for toileting - Left knee immobilizer placed - Cont home medications - Reg diet - dc IV meds, we will only do PO meds - Talked to Dr. Salomon. Knee will heal conservatively - no surgery. Ankles will be referred to Dr. Ibanez in [place]. Ankles will be repaired after 6-8 weeks. At the mean time the patient should be NWB in BLE. - Chemical DVT PPx with lovenox 40 Qd Gout - restarted home meds - Allopurinol and Colchicine HTN - restarted Losartan GERD - restarted Omeprazole DISPO: recommendation is SNF as the patient is NWB in BLE for 6-8 weeks and lives aloe. However, the patient does not want to go to SNF. He is remodelling his home so that he can return home. We will order supplies to help him stay home as safely as possible. He understands the risks for going home. Can be discharged as soon as supplies and set up is ready.
[2020-10-22] MEDS ORDERED: Cyclobenzaprine 10 MG Tab PO ONE (21:55)
[2020-10-23] MEDS: Acetaminophen 325 MG Tab PO SCH ×6 (03:36→21:30)
[2020-10-23] MEDS ORDERED: Cyclobenzaprine 10 MG Tab PO PRN (03:43)
[2020-10-23] MEDS: Pantoprazole 40 MG Tab.CR PO SCH (06:25)
[2020-10-23] MEDS: Enoxaparin 40 MG/0.4 ML Syringe SUBCUT SCH (10:03)
[2020-10-23] MEDS: Colchicine 0.6 MG Tab PO SCH (10:05)
[2020-10-23] MEDS: Losartan 25 MG Tab PO SCH (10:05)
[2020-10-23] MEDS: Polyethylene Glycol 3350 Powder 17 GM Packet PO SCH (10:06)
[2020-10-23] MEDS: Allopurinol 300 MG Tab PO SCH (10:06)
[2020-10-23] MEDS: oxyCODONE 5 MG Tab PO PRN ×2 (12:45→16:54)
--- NOTE | 2020-10-23 14:06 | PCM.PN ---
- General Info Date of Service: 10/23/20 Admission Dx/Problem (Free Text): Fall with BLE fractures Subjective Update: Patient has bilateral lower extremity spasms, pain is controlled. no fevers or chills. he is tolerating regular diet. Functional Status: Reports: Pain Controlled, Tolerating Diet, Urinating - Review of Systems General: Reports: No Symptoms HEENT: Reports: No Symptoms Pulmonary: Reports: No Symptoms Cardiovascular: Reports: No Symptoms Gastrointestinal: Reports: No Symptoms Genitourinary: Reports: No Symptoms Musculoskeletal: Reports: Other (ble fractures) Skin: Reports: No Symptoms Neurological: Reports: No Symptoms Psychiatric: Reports: No Symptoms - Patient Data Vitals - Most Recent: Last Vital Signs Temp 98.6 F 10/23/20 11:21 Pulse 89 10/23/20 11:21 Resp 18 10/23/20 11:21 BP 153/67 H 10/23/20 11:21 Pulse Ox 95 10/23/20 11:21 Weight - Most Recent: 113.443 kg I&O - Last 24 Hours: Intake & Output 10/22/20 10/23/20 10/23/20 22:59 06:59 14:59 Intake Total 360 300 240 Output Total 700 Balance 360 -400 240 Med Orders - Current: Current Medications Acetaminophen (Tylenol) 650 mg PO Q4H [facility] Last Admin: 10/23/20 10:04 Dose: 650 mg Documented by: Allopurinol (Zyloprim) 300 mg PO DAILY [facility] Last Admin: 10/23/20 10:06 Dose: 300 mg Documented by: Bisacodyl (Dulcolax) 5 mg PO DAILY PRN PRN Reason: Constipation Last Admin: 10/19/20 11:45 Dose: 5 mg Documented by: Bisacodyl (Dulcolax) 10 mg RECTAL DAILY PRN PRN Reason: Constipation Last Admin: 10/21/20 13:29 Dose: 10 mg Documented by: Colchicine (Colcrys) 0.6 mg PO DAILY [facility] Last Admin: 10/23/20 10:05 Dose: 0.6 mg Documented by: Cyclobenzaprine HCl (Flexeril) 10 mg PO TID PRN PRN Reason: Muscle Spasm Last Admin: 10/23/20 06:25 Dose: 10 mg Documented by: Docusate Sodium (Colace) 100 mg PO BID PRN PRN Reason: Constipation Last Admin: 10/18/20 22:23 Dose: 100 mg Documented by: Enoxaparin Sodium (Lovenox) 40 mg SUBCUT DAILY [facility] Last Admin: 10/23/20 10:03 Dose: 40 mg Documented by: Losartan Potassium (Cozaar) 50 mg PO DAILY [facility] Last Admin: 10/23/20 10:05 Dose: 50 mg Documented by: Ondansetron HCl (Zofran Odt) 4 mg PO Q4H PRN PRN Reason: nausea, able to take PO Oxycodone HCl (Oxycodone) 10 mg PO Q4H PRN PRN Reason: Pain Last Admin: 10/23/20 12:45 Dose: 10 mg Documented by: Pantoprazole Sodium (Protonix) 40 mg PO ACBRK [facility] Last Admin: 10/23/20 06:25 Dose: 40 mg Documented by: Polyethylene Glycol (Miralax) 17 gm PO DAILY [facility] Last Admin: 10/23/20 10:06 Dose: Not Given Documented by: Senna (Senna) 8.6 - 17.2 mg PO BID PRN PRN Reason: Constipation Last Admin: 10/19/20 11:44 Dose: 17.2 mg Documented by: Discontinued Medications Acetaminophen (Tylenol) 650 mg PO Q4H PRN PRN Reason: Pain (Mild 1-3)/fever Last Admin: 10/17/20 06:30 Dose: 650 mg Documented by: Cyclobenzaprine HCl (Flexeril) 10 mg PO ONETIME ONE Stop: 10/22/20 21:56 Last Admin: 10/22/20 22:00 Dose: 10 mg Documented by: Heparin Sodium (Porcine) (Heparin Sodium) 5,000 units SUBCUT Q8H [facility] Last Admin: 10/20/20 21:54 Dose: 5,000 units Documented by: Hydromorphone HCl (Dilaudid) 1 mg IVPUSH ONETIME ONE Stop: 10/16/20 13:59 Last Admin: 10/16/20 14:12 Dose: 1 mg Documented by: Hydromorphone HCl (Dilaudid) 1 mg IVPUSH ONETIME ONE Stop: 10/16/20 18:48 Last Admin: 10/16/20 18:52 Dose: 1 mg Documented by: Hydromorphone HCl (Dilaudid) 0.5 mg IVPUSH Q2H PRN PRN Reason: Pain (severe 7-10) Last Admin: 10/17/20 03:51 Dose: 0.5 mg Documented by: Hydromorphone HCl (Dilaudid) 1 mg IVPUSH Q3H PRN PRN Reason: Pain Last Admin: 10/21/20 00:32 Dose: 1 mg Documented by: Sodium Chloride (Normal Saline) 1,000 mls @ 250 mls/hr IV ASDIRECTED [facility] Last Admin: 10/16/20 14:11 Dose: 250 mls/hr Documented by: Lactated Ringer's (Ringers, Lactated) 1,000 mls @ 50 mls/hr IV ASDIRECTED [facility] Last Admin: 10/20/20 11:55 Dose: 50 mls/hr Documented by: Lactated Ringer's (Ringers, Lactated) 1,000 mls @ 100 mls/hr IV ASDIRECTED [facility] Last Admin: 10/21/20 02:13 Dose: 100 mls/hr Documented by: Magnesium Hydroxide (Milk Of Magnesia) 30 ml PO ONETIME ONE Stop: 10/20/20 06:01 Last Admin: 10/20/20 08:17 Dose: 30 ml Documented by: Magnesium Hydroxide (Milk Of Magnesia) 30 ml PO ONETIME ONE Stop: 10/22/20 05:47 Last Admin: 10/22/20 06:11 Dose: Not Given Documented by: Metoclopramide HCl (Reglan) 10 mg IVPUSH ONETIME ONE Stop: 10/16/20 13:59 Last Admin: 10/16/20 14:05 Dose: 10 mg Documented by: Oxycodone HCl (Oxycodone) 5 mg PO Q4H PRN PRN Reason: Pain (moderate 4-6) Last Admin: 10/17/20 06:29 Dose: 5 mg Documented by: Oxycodone HCl (Oxycodone) 10 mg PO ONETIME ONE Stop: 10/21/20 19:03 Last Admin: 10/21/20 19:07 Dose: 10 mg Documented by: - Exam General: Alert, Oriented, Cooperative Lungs: Clear to Auscultation, Normal Respiratory Effort Cardiovascular: Regular Rate, Regular Rhythm Extremities: Normal Capillary Refill, Other (can wiggle his toes without problem) Sepsis Event Note - Evaluation Sepsis Screening Result: No Definite Risk - Focused Exam Vital Signs: Vital Signs Temp Pulse Resp BP Pulse Ox 10/23/20 11:21 98.6 F 89 18 153/67 H 95 10/23/20 10:05 108/60 10/23/20 07:57 97.7 F 61 20 108/60 92 L 10/23/20 03:36 98.2 F 80 18 130/92 H 94 L - Problem List Review Problem List Initiated/Reviewed/Updated: No - My Orders Last 24 Hours: My Active Orders 10/23/20 03:43 Cyclobenzaprine [Flexeril] 10 mg PO TID PRN - Assessment Assessment:: Patient is s/p fall with left knee fx and bilateral calcaneus fractures. Stable. - Plan Plan:: Fall from 12 ft, landed on his feet but then had a secondary fall from standing hitting forehead. +LOC. CT head is normal. Has left tibial plateau fx, left prox fib fx, BL calcaneal fxs, right much worse than left. BLE have been splinted. Fractures - No weight bearing in BLE. Need to stay in bed. Provide bed ambrosio and urinal for toileting - Left knee immobilizer placed - Cont home medications - Reg diet - dc IV meds, we will only do PO meds - Talked to Dr. Salomon. Knee will heal conservatively - no surgery. Ankles will be referred to Dr. Ibanez in [place]. Ankles will be repaired after 6-8 weeks. At the mean time the patient should be NWB in [facility]. 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 Gout - restarted home meds - Allopurinol and Colchicine HTN - restarted Losartan GERD - restarted Omeprazole DISPO: recommendation is SNF as the patient is NWB in [facility] for 6-8 weeks and lives aloe. However, the patient does not want to go to SNF. He is remodelling his home so that he can return home. We will order supplies to help him stay home as safely as possible. He understands the risks for going home. Can be discharged as soon as supplies and set up is ready and is deemed able to do transfers by PT/OT
--- NOTE | 2020-10-23 16:45 | PCM.SN.2 ---
- Free Text/Narrative Note: I reviewed the BMP. K, Mag, Phos are within normal limits. Flexeril Q8 PRN for BLE spasms.
[2020-10-24] MEDS: Acetaminophen 325 MG Tab PO SCH ×4 (03:28→16:55)
[2020-10-24] MEDS: Pantoprazole 40 MG Tab.CR PO SCH (06:25)
[2020-10-24] MEDS: Losartan 25 MG Tab PO SCH (08:26)
[2020-10-24] MEDS: oxyCODONE 5 MG Tab PO PRN ×2 (08:27→13:07)
[2020-10-24] MEDS: Colchicine 0.6 MG Tab PO SCH (08:27)
[2020-10-24] MEDS: Allopurinol 300 MG Tab PO SCH (08:27)
[2020-10-24] MEDS: Enoxaparin 40 MG/0.4 ML Syringe SUBCUT SCH (08:28)
[2020-10-24] MEDS: Polyethylene Glycol 3350 Powder 17 GM Packet PO SCH (08:28)
[2020-10-24 13:29] VITALS: BP 105/80; PULSE 81
--- NOTE | 2020-10-24 21:21 | PCM.PN ---
- General Info Date of Service: 10/24/20 Admission Dx/Problem (Free Text): Fall with BLE fractures Subjective Update: Patient had no complaints today. pain is controlled, he is having bowel movements and is doing well otherwise. He was able to transfer to chair yesterday with help and a slider board. Functional Status: Reports: Pain Controlled, Tolerating Diet, Urinating - Review of Systems General: Reports: No Symptoms HEENT: Reports: No Symptoms Pulmonary: Reports: No Symptoms Cardiovascular: Reports: No Symptoms Gastrointestinal: Reports: No Symptoms Genitourinary: Reports: No Symptoms Musculoskeletal: Reports: Joint Swelling (due to the recent accident) Skin: Reports: No Symptoms Neurological: Reports: No Symptoms Psychiatric: Reports: No Symptoms - Patient Data Vitals - Most Recent: Last Vital Signs Temp 97.5 F 10/24/20 13:15 Pulse 81 10/24/20 13:15 Resp 16 10/24/20 13:15 BP 105/80 10/24/20 13:15 Pulse Ox 97 10/24/20 13:15 Weight - Most Recent: 111.674 kg I&O - Last 24 Hours: Intake & Output 10/24/20 10/24/20 10/24/20 06:59 14:59 22:59 Intake Total 400 240 240 Output Total 600 Balance -200 240 240 Med Orders - Current: Current Medications Discontinued Medications Acetaminophen (Tylenol) 650 mg PO Q4H PRN PRN Reason: Pain (Mild 1-3)/fever Last Admin: 10/17/20 06:30 Dose: 650 mg Documented by: Acetaminophen (Tylenol) 650 mg PO Q4H [facility] Last Admin: 10/24/20 16:55 Dose: Not Given Documented by: Allopurinol (Zyloprim) 300 mg PO DAILY [facility] Last Admin: 10/24/20 08:27 Dose: 300 mg Documented by: Bisacodyl (Dulcolax) 5 mg PO DAILY PRN PRN Reason: Constipation Last Admin: 10/19/20 11:45 Dose: 5 mg Documented by: Bisacodyl (Dulcolax) 10 mg RECTAL DAILY PRN PRN Reason: Constipation Last Admin: 10/21/20 13:29 Dose: 10 mg Documented by: Colchicine (Colcrys) 0.6 mg PO DAILY [facility] Last Admin: 10/24/20 08:27 Dose: 0.6 mg Documented by: Cyclobenzaprine HCl (Flexeril) 10 mg PO ONETIME ONE Stop: 10/22/20 21:56 Last Admin: 10/22/20 22:00 Dose: 10 mg Documented by: Cyclobenzaprine HCl (Flexeril) 10 mg PO TID PRN PRN Reason: Muscle Spasm Last Admin: 10/23/20 06:25 Dose: 10 mg Documented by: Docusate Sodium (Colace) 100 mg PO BID PRN PRN Reason: Constipation Last Admin: 10/18/20 22:23 Dose: 100 mg Documented by: Enoxaparin Sodium (Lovenox) 40 mg SUBCUT DAILY [facility] Last Admin: 10/24/20 08:28 Dose: 40 mg Documented by: Heparin Sodium (Porcine) (Heparin Sodium) 5,000 units SUBCUT Q8H [facility] Last Admin: 10/20/20 21:54 Dose: 5,000 units Documented by: Hydromorphone HCl (Dilaudid) 1 mg IVPUSH ONETIME ONE Stop: 10/16/20 13:59 Last Admin: 10/16/20 14:12 Dose: 1 mg Documented by: Hydromorphone HCl (Dilaudid) 1 mg IVPUSH ONETIME ONE Stop: 10/16/20 18:48 Last Admin: 10/16/20 18:52 Dose: 1 mg Documented by: Hydromorphone HCl (Dilaudid) 0.5 mg IVPUSH Q2H PRN PRN Reason: Pain (severe 7-10) Last Admin: 10/17/20 03:51 Dose: 0.5 mg Documented by: Hydromorphone HCl (Dilaudid) 1 mg IVPUSH Q3H PRN PRN Reason: Pain Last Admin: 10/21/20 00:32 Dose: 1 mg Documented by: Sodium Chloride (Normal Saline) 1,000 mls @ 250 mls/hr IV ASDIRECTED [facility] Last Admin: 10/16/20 14:11 Dose: 250 mls/hr Documented by: Lactated Ringer's (Ringers, Lactated) 1,000 mls @ 50 mls/hr IV ASDIRECTED [facility] Last Admin: 10/20/20 11:55 Dose: 50 mls/hr Documented by: Lactated Ringer's (Ringers, Lactated) 1,000 mls @ 100 mls/hr IV ASDIRECTED [facility] Last Admin: 10/21/20 02:13 Dose: 100 mls/hr Documented by: Losartan Potassium (Cozaar) 50 mg PO DAILY [facility] Last Admin: 10/24/20 08:26 Dose: 50 mg Documented by: Magnesium Hydroxide (Milk Of Magnesia) 30 ml PO ONETIME ONE Stop: 10/20/20 06:01 Last Admin: 10/20/20 08:17 Dose: 30 ml Documented by: Magnesium Hydroxide (Milk Of Magnesia) 30 ml PO ONETIME ONE Stop: 10/22/20 05:47 Last Admin: 10/22/20 06:11 Dose: Not Given Documented by: Metoclopramide HCl (Reglan) 10 mg IVPUSH ONETIME ONE Stop: 10/16/20 13:59 Last Admin: 10/16/20 14:05 Dose: 10 mg Documented by: Ondansetron HCl (Zofran Odt) 4 mg PO Q4H PRN PRN Reason: nausea, able to take PO Oxycodone HCl (Oxycodone) 5 mg PO Q4H PRN PRN Reason: Pain (moderate 4-6) Last Admin: 10/17/20 06:29 Dose: 5 mg Documented by: Oxycodone HCl (Oxycodone) 10 mg PO Q4H PRN PRN Reason: Pain Last Admin: 10/24/20 13:07 Dose: 10 mg Documented by: Oxycodone HCl (Oxycodone) 10 mg PO ONETIME ONE Stop: 10/21/20 19:03 Last Admin: 10/21/20 19:07 Dose: 10 mg Documented by: Pantoprazole Sodium (Protonix) 40 mg PO ACBRK [facility] Last Admin: 10/24/20 06:25 Dose: 40 mg Documented by: Polyethylene Glycol (Miralax) 17 gm PO DAILY [facility] Last Admin: 10/24/20 08:28 Dose: Not Given Documented by: Senna (Senna) 8.6 - 17.2 mg PO BID PRN PRN Reason: Constipation Last Admin: 10/19/20 11:44 Dose: 17.2 mg Documented by: - Exam General: Alert, Oriented, Cooperative Lungs: Clear to Auscultation, Normal Respiratory Effort Cardiovascular: Regular Rate, Regular Rhythm, No Murmurs GI/Abdominal Exam: Soft, Non-Tender, No Organomegaly, No Abnormal Bruit Extremities: Normal Capillary Refill, Limited Range of Motion (due to pain) Sepsis Event Note - Evaluation Sepsis Screening Result: No Definite Risk - Focused Exam Vital Signs: Vital Signs Temp Pulse Resp BP Pulse Ox 10/24/20 13:15 97.5 F 81 16 105/80 97 - Problem List Review Problem List Initiated/Reviewed/Updated: No - Assessment Assessment:: Patient is s/p fall with left knee fx and bilateral calcaneus fractures. Stable. - Plan Plan:: Fall from 12 ft, landed on his feet but then had a secondary fall from standing hitting forehead. +LOC. CT head is normal. Has left tibial plateau fx, left prox fib fx, BL calcaneal fxs, right much worse than left. BLE have been splinted. Fractures - No weight bearing in BLE. Need to stay in bed. Provide bed ambrosio and urinal for toileting - Left knee immobilizer placed - Cont home medications - Reg diet - PO meds - Talked to Dr. Salomon. Knee will heal conservatively - no surgery. Ankles will be referred to Dr. Ibanez in [place]. Ankles will be repaired after 6-8 weeks. At the mean time the patient should be NWB in [place]. - Chemical DVT PPx with lovenox 40 Qd. Will switch this to Eliquis upon discharge - Leg spasms - no electrolyte abnormalities. Likely due to recent trauma and immobility Gout - restarted home meds - Allopurinol and Colchicine HTN - restarted Losartan GERD - restarted Omeprazole DISPO: recommendation is SNF as the patient is NWB in [place] for 6-8 weeks and lives [place]. However, the patient does not want to go to SNF. He is remodelling his home so that he can return home. We will order supplies to help him stay ho hi as safely as possible. He understands the risks for going home. Can be discharged as soon as supplies and set up is ready and is deemed able to do transfers by PT/OT Plan to discharge today
--- NOTE | 2020-10-24 21:26 | PCM.DCSUM1 ---
Discharge Summary - Hospital Course Free Text/Narrative:: Patient had a fall, laded on his feed, sustained bilateral calcaneal fractures, left knee fracture. He is non-operative at this time but will need operation in 6-8 weeks. He is to be non-weight bearing in bilateral lower extremities until then. Patient wanted to go home vs SNF and the home was remodeled and equipments obtained for patient's safe discharge home. He was told about the risks of going home vs NSF and understood. Diagnosis: Stroke: No - Discharge Data Discharge Date: 10/24/20 Discharge Disposition: Home, Self-Care 01 Condition: Good - Referral to Home Health Date of Face to Face Encounter: 10/22/20 Reason for Homebound Status: Face to face meeting with pt and/or family. Pt has left tibial plateau fx, left fib fx, BL calcaneal fxs (right worse than left). Pt is in need for Home Health services for, low activity tolerance, functional mobility, strength, transfers. Nursing for pain management, vitals, skilled assessment, medication education, disease management. PERIPHERAL VASCULAR TECH services for bathing and assistance with self cares. Physical therapy for balance training, gait training, neuromuscular reduction, therapeutic exercises, and transfer training. Occupationsl therapy for activity tolerance, self-care training, ADLs and t/f training. Pt is currently homebound related to fall resultingin multiple LE fractures, decreased activity tolerance and a decreased level of indurance. Pt will be followed by his primary provider, Dr. Dawson and Orthopedic provider, Dr. Ibanez. Primary Care Physician: Chasidy Dawson MD - Patient Summary/Data Consults: Consultations 10/21/20 06:30 Consult to Physician [CONS] Routine 10/21/20 11:53 PT Evaluation and Treatment [CONS] Routine - Patient Instructions Diet: Regular Diet as Tolerated Activity: Non Weight Bearing Driving: Do Not Drive Showering/Bathing: May Shower - Discharge Plan *PRESCRIPTION DRUG MONITORING PROGRAM REVIEWED*: No *COPY OF PRESCRIPTION DRUG MONITORING REPORT IN PATIENT MIKHAIL: No Prescriptions/Med Rec: Apixaban [Eliquis] 2.5 mg PO Q12H #60 tablet polyethylene glycoL 3350 [MiraLAX] 17 gm PO DAILY 60 Days #60 packet oxyCODONE 10 mg PO Q8H PRN 20 Days #60 tab PRN Reason: Pain (Severe 7-10) Home Medications: Home Meds Omeprazole 20 mg PO DAILY 10/16/20 [History] Allopurinol [Zyloprim] 300 mg PO DAILY 10/17/20 [History] Colchicine 0.6 mg PO DAILY 10/17/20 [History] Losartan [Cozaar] 50 mg PO DAILY 10/17/20 [History] Apixaban [Eliquis] 2.5 mg PO Q12H #60 tablet 10/24/20 [Rx] oxyCODONE 10 mg PO Q8H PRN 20 Days #60 tab 10/24/20 [Rx] polyethylene glycoL 3350 [MiraLAX] 17 gm PO DAILY 60 Days #60 packet 10/24/20 [Rx] Oxygen Therapy Mode: Room Air Referrals: Jasiel Reyes MD [Ordering Only Provider] - 10/25/20 11:50 am (You have an a pt. with Dr. Reyes in [facility] on 10/25/2020 at 1150AM central time. ) Chasidy Dawson MD [Primary Care Provider] - (The MD will contact you with a follow up appointment day/time, [facility] nursing has notified them of followup needed in 7-10 days post discharge. ) - Discharge Summary/Plan Comment DC Time >30 min.: Yes - General Info Date of Service: 10/24/20 Admission Dx/Problem (Free Text: Fall with BLE fractures Subjective Update: Doing well today, no major complaints. Was able to do a bed to chair transfer yesterday. Functional Status: Reports: Pain Controlled, Tolerating Diet, Urinating - Review of Systems General: Reports: No Symptoms HEENT: Reports: No Symptoms Pulmonary: Reports: No Symptoms Cardiovascular: Reports: No Symptoms Gastrointestinal: Reports: No Symptoms Genitourinary: Reports: No Symptoms Musculoskeletal: Reports: Joint Pain (due to known ble fractures) Neurological: Reports: No Symptoms Psychiatric: Reports: No Symptoms - Patient Data Vitals - Most Recent: Last Vital Signs Temp 97.5 F 10/24/20 13:15 Pulse 81 10/24/20 13:15 Resp 16 10/24/20 13:15 BP 105/80 10/24/20 13:15 Pulse Ox 97 10/24/20 13:15 Weight - Most Recent: 111.674 kg I&O - Last 24 hours: Intake & Output 10/24/20 10/24/2020 06:59 14:59 22:59 Intake Total 400 240 240 Output Total 600 Balance -200 240 240 Med Orders - Current: Current Medications Discontinued Medications Acetaminophen (Tylenol) 650 mg PO Q4H PRN PRN Reason: Pain (Mild 1-3)/fever Last Admin: 10/17/20 06:30 Dose: 650 mg Documented by: Acetaminophen (Tylenol) 650 mg PO Q4H [facility] Last Admin: 10/24/20 16:55 Dose: Not Given Documented by: Allopurinol (Zyloprim) 300 mg PO DAILY [facility] Last Admin: 10/24/20 08:27 Dose: 300 mg Documented by: Bisacodyl (Dulcolax) 5 mg PO DAILY PRN PRN Reason: Constipation Last Admin: 10/19/20 11:45 Dose: 5 mg Documented by: Bisacodyl (Dulcolax) 10 mg RECTAL DAILY PRN PRN Reason: Constipation Last Admin: 10/21/20 13:29 Dose: 10 mg Documented by: Colchicine (Colcrys) 0.6 mg PO DAILY [facility] Last Admin: 10/24/20 08:27 Dose: 0.6 mg Documented by: Cyclobenzaprine HCl (Flexeril) 10 mg PO ONETIME ONE Stop: 10/22/20 21:56 Last Admin: 10/22/20 22:00 Dose: 10 mg Documented by: Cyclobenzaprine HCl (Flexeril) 10 mg PO TID PRN PRN Reason: Muscle Spasm Last Admin: 10/23/20 06:25 Dose: 10 mg Documented by: Docusate Sodium (Colace) 100 mg PO BID PRN PRN Reason: Constipation Last Admin: 10/18/20 22:23 Dose: 100 mg Documented by: Enoxaparin Sodium (Lovenox) 40 mg SUBCUT DAILY [facility] Last Admin: 10/24/20 08:28 Dose: 40 mg Documented by: Heparin Sodium (Porcine) (Heparin Sodium) 5,000 units SUBCUT Q8H [facility] Last Admin: 10/20/20 21:54 Dose: 5,000 units Documented by: Hydromorphone HCl (Dilaudid) 1 mg IVPUSH ONETIME ONE Stop: 10/16/20 13:59 Last Admin: 10/16/20 14:12 Dose: 1 mg Documented by: Hydromorphone HCl (Dilaudid) 1 mg IVPUSH ONETIME ONE Stop: 10/16/20 18:48 Last Admin: 10/16/20 18:52 Dose: 1 mg Documented by: Hydromorphone HCl (Dilaudid) 0.5 mg IVPUSH Q2H PRN PRN Reason: Pain (severe 7-10) Last Admin: 10/17/20 03:51 Dose: 0.5 mg Documented by: Hydromorphone HCl (Dilaudid) 1 mg IVPUSH Q3H PRN PRN Reason: Pain Last Admin: 10/21/20 00:32 Dose: 1 mg Documented by: Sodium Chloride (Normal Saline) 1,000 mls @ 250 mls/hr IV ASDIRECTED [facility] Last Admin: 10/16/20 14:11 Dose: 250 mls/hr Documented by: Lactated Ringer's (Ringers, Lactated) 1,000 [facility]ls [facility] Admin: 10/20/20 11:55 Dose: 50 mls/hr Documented by: Lactated Ringer's (Ringers, Lactated) 1,000 mls @ 100 [facility] Last Admin: 10/21/20 02:13 Dose: 100 mls/hr Documented by: Losartan Potassium (Cozaar) 50 mg PO DAILY [facility] Last Admin: 10/24/20 08:26 Dose: 50 mg Documented by: Magnesium Hydroxide (Milk Of Magnesia) 30 ml PO ONETIME ONE Stop: 10/20/20 06:01 Last Admin: 10/20/20 08:17 Dose: 30 ml Documented by: Magnesium Hydroxide (Milk Of Magnesia) 30 ml PO ONETIME ONE Stop: 10/22/20 05:47 Last Admin: 10/22/20 06:11 Dose: Not Given Documented by: Metoclopramide HCl (Reglan) 10 mg IVPUSH ONETIME ONE Stop: 10/16/20 13:59 Last Admin: 10/16/20 14:05 Dose: 10 mg Documented by: Ondansetron HCl (Zofran Odt) 4 mg PO Q4H PRN PRN Reason: nausea, able to take PO Oxycodone HCl (Oxycodone) 5 mg PO Q4H PRN PRN Reason: Pain (moderate 4-6) Last Admin: 10/17/20 06:29 Dose: 5 mg Documented by: Oxycodone HCl (Oxycodone) 10 mg PO Q4H PRN PRN Reason: Pain Last Admin: 10/24/20 13:07 Dose: 10 mg Documented by: Oxycodone HCl (Oxycodone) 10 mg PO ONETIME ONE Stop: 10/21/20 19:03 Last Admin: 10/21/20 19:07 Dose: 10 mg Documented by: Pantoprazole Sodium (Protonix) 40 mg PO ACBRK [facility] Last Admin: 10/24/20 06:25 Dose: 40 mg Documented by: Polyethylene Glycol (Miralax) 17 gm PO DAILY [facility] Last Admin: 10/24/20 08:28 Dose: Not Given Documented by: Senna (Senna) 8.6 - 17.2 mg PO BID PRN PRN Reason: Constipation Last Admin: 10/19/20 11:44 Dose: 17.2 mg Documented by: - Exam General: Reports: Alert, Oriented, Cooperative Lungs: Reports: Clear to Auscultation, Normal Respiratory Effort Cardiovascular: Reports: Regular Rate, Regular Rhythm, No Murmurs GI/Abdominal Exam: Normal Bowel Sounds, Soft, Non-Tender, No Organomegaly, No Abnormal Bruit Extremities: Normal Capillary Refill, Limited Range of Motion (due to known BLE fractures), Other (Knee immobilizer on the left knee. splint on bilateral ankles.) *Q Meaningful Use (DIS) - VTE *Q VTE Mechanical Contraindications *Q: Bilateral Lower Deformity VTE Pharmacological Contraindications *Q: Active Hemorrhage
== END 2020-10-24 14:30 | disposition home or self-care (01) | DRG 563 ==
LOC: JD.ED 13:50 → JD.MS 19:33
PROVIDERS: ADMIT Surgery; ATTEND Surgery
DX: S82.142A Displaced bicondylar fracture of left tibia, initial encounter for closed fracture (principal); S06.9X9A Unspecified intracranial injury with loss of consciousness of unspecified duration, initial encounter; S00.81XA Abrasion of other part of head, initial encounter; S92.015A Nondisplaced fracture of body of left calcaneus, initial encounter for closed fracture; S92.011A Displaced fracture of body of right calcaneus, initial encounter for closed fracture; M10.9 Gout, unspecified; I10 Essential (primary) hypertension; K21.9 Gastro-esophageal reflux disease without esophagitis; Z20.828 Contact with and (suspected) exposure to other viral communicable diseases; E66.9 Obesity, unspecified; Z68.37 Body mass index [BMI] 37.0-37.9, adult; Z88.0 Allergy status to penicillin; Z79.899 Other long term (current) drug therapy; W17.89XA Other fall from one level to another, initial encounter
CPT/HCPCS: 29515; 36415; 70450; 71045; 72128; 72131; 72170; 73590; 73630 ×2; 73700 ×3; 80053; 80307; 81001; 82550; 83735; 83880; 85025; 85610; 85730; 86140; 87635; 93005; 96374; 96375; 96376; 99285; J1170 ×2; J2765; J7030; 80048; 84100; 85027; 93010; 97162-GP; 97530-GP; 99284; A9270-GY; J1644; J1650; J7120; U0002

== ENCOUNTER 2023-06-02 07:57 | Day surgery (SDC) | payer OTHER ==
[~2023-06-02 07:57] MED LIST: Sodium Chloride 0.9% 10 ML Syringe FLUSH PRN
[2023-06-02] MEDS ORDERED: Lactated Ringers 1,000 ML IV SCH (08:00)
[2023-06-02] MEDS ORDERED: Sodium Chloride 0.9% 10 ML Syringe FLUSH SCH (09:00)
[2023-06-02] MEDS ORDERED: fentaNYL 100 MCG/2 ML SDV ONE (09:06)
[2023-06-02] MEDS ORDERED: Propofol 200 MG/20 ML SDV ONE (09:06)
[2023-06-02 12:45] VITALS: BP 126/70; PULSE 74
== END 2023-06-02 11:27 | disposition home or self-care (01) ==
LOC: JD.SDS 07:57
PROVIDERS: ATTEND Surgery
DX: Z12.11 Encounter for screening for malignant neoplasm of colon (principal); K21.00 Gastro-esophageal reflux disease with esophagitis, without bleeding; K29.50 Unspecified chronic gastritis without bleeding; K22.70 Barrett's esophagus without dysplasia; K31.7 Polyp of stomach and duodenum; K29.80 Duodenitis without bleeding; K64.9 Unspecified hemorrhoids; M54.9 Dorsalgia, unspecified; G89.29 Other chronic pain; M10.9 Gout, unspecified; I10 Essential (primary) hypertension; F43.10 Post-traumatic stress disorder, unspecified; G47.30 Sleep apnea, unspecified; E66.9 Obesity, unspecified; Z88.0 Allergy status to penicillin; Z79.899 Other long term (current) drug therapy; Z86.010 Personal history of colon polyps; Z98.890 Other specified postprocedural states; Z87.891 Personal history of nicotine dependence; Z68.41 Body mass index [BMI] 40.0-44.9, adult
CPT/HCPCS: 43239; 45378; J2704; J3010; J7120; 00813

== ENCOUNTER 2024-07-25 18:25 | Emergency (ER) | payer OTHER ==
[2024-07-25 19:07] VITALS: BP 125/81; PULSE 71
[2024-07-25] MEDS: Acetaminophen 325 MG Tab PO ONE (20:05)
[2024-07-25] MEDS: Diphtheria,Pertussis(Acell),Tetanus Vaccine 0.5 ML Syringe IM ONE (20:08)
[2024-07-25] MEDS: Dexamethasone/Tobramycin 0.1-0.3% Ophth Susp 5 ML Bottle EYERT SCH (20:15)
== END 2024-07-25 20:20 | disposition home or self-care (01) ==
LOC: JD.ED 18:25
DX: S05.51XA Penetrating wound with foreign body of right eyeball, initial encounter (principal); I10 Essential (primary) hypertension; E66.9 Obesity, unspecified; Z68.36 Body mass index [BMI] 36.0-36.9, adult; Z79.899 Other long term (current) drug therapy; Z23 Encounter for immunization; K21.9 Gastro-esophageal reflux disease without esophagitis; Z88.0 Allergy status to penicillin; W45.8XXA Other foreign body or object entering through skin, initial encounter
CPT/HCPCS: 65220; 90471; 90715; 99283; A9270; 65205

== ENCOUNTER 2025-02-27 06:39 | Day surgery (SDC) | payer OTHER ==
[~2025-02-27 06:39] MED LIST changes: +Sodium Chloride 0.9% 10 ML Syringe FLUSH SCH
[2025-02-27] MEDS: Lactated Ringers 1,000 ML IV SCH (07:00)
[2025-02-27] MEDS ORDERED: Propofol 200 MG/20 ML SDV ONE (07:45)
[2025-02-27] MEDS ORDERED: Lidocaine 1% 4 ML ONE (07:45)
[2025-02-27 12:33] VITALS: BP 107/64; PULSE 68
== END 2025-02-27 08:45 | disposition home or self-care (01) ==
LOC: JD.SDS 06:39
PROVIDERS: ATTEND Surgery
DX: K29.50 Unspecified chronic gastritis without bleeding (principal); K21.9 Gastro-esophageal reflux disease without esophagitis; I10 Essential (primary) hypertension; G47.30 Sleep apnea, unspecified; Z79.899 Other long term (current) drug therapy; Z88.0 Allergy status to penicillin; Z88.8 Allergy status to other drugs, medicaments and biological substances
CPT/HCPCS: 43239; 88305; C9777; J2003; J2704; J7120; 00731